=== PATIENT | female | born 1985 | race Caucasian/White ===

== ENCOUNTER 2016-11-30 18:16 | Emergency (ER) | payer OTHER ==
[2016-11-30 18:28] VITALS: BP 114/75; PULSE 69; RESP 18; TEMP 97.9
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
== END 2016-11-30 19:01 | disposition home or self-care (01) ==
LOC: EC 18:16
DX: Z04.1 Encounter for examination and observation following transport accident (principal); V48.5XXA Car driver injured in noncollision transport accident in traffic accident, initial encounter; Y92.410 Unspecified street and highway as the place of occurrence of the external cause
CPT/HCPCS: 99283

== ENCOUNTER 2017-01-03 12:23 | Inpatient (IN) | payer OTHER ==
[2017-01-03] MEDS ORDERED: HYDROmorphone 0.5 MG/0.5 ML SYRINGE IVP STA (13:41)
[2017-01-03] MEDS ORDERED: MAGNESIUM CITRATE 296 ML BOTTLE PO ONE (13:47)
[2017-01-03] MEDS ORDERED: LACTULOSE 20 GM/30 ML CUP PO ONE (13:47)
--- NOTE | 2017-01-03 13:47 | ED ---
General Adult HPI - General Chief complaint: Abdominal Pain Stated complaint: Post Surgical Complications Time Seen by Provider: 01/03/17 13:30 Source: patient, RN notes reviewed, old records reviewed Mode of arrival: wheelchair Limitations: no limitations - History of Present Illness Initial comments: 31-year-old female presents with chief complaint constipation and rectal bleeding. Patient had a hemorrhoidectomy on 12/29. Since that time she has had normal bowel movements. She has had 5 ER visits. Patient also complains of some rectal bleeding, and passing some small clots. She has tried Colace, MiraLAX, magnesium citrate 2. Patient was instructed to not use an enema secondary to her recent surgery. Denies nausea vomiting, does complain of significant pain in her rectum. - Related Data Previous Rx's Medication Instructions Recorded Ondansetron [Zofran ODT] 4 mg PO Q8HR PRN #10 tab 12/25/16 Hydrocodone/Acetaminophen [[place] 1 tab PO Q6HR PRN #10 tab 01/02/17 5-325] Metoclopramide [Reglan] 10 mg PO TID PRN #15 tab 01/02/17 Polyethylene Glycol 3350 [Miralax] 17 gm PO DAILY #255 gm 01/02/17 Allergies Allergy/AdvReac Type Severity Reaction Status Date / Time No Known Allergies Allergy Verified 01/03/17 15:13 Review of Systems ROS Statement: Those systems with pertinent positive or pertinent negative responses have been documented in the HPI. ROS Other: All systems not noted in ROS Statement are negative. Past Medical History Past Medical History: No Reported History Additional Past Medical History / Comment(s): PRE-ECLAMPSIA History of Any Multi-Drug Resistant Organisms: None Reported Past Surgical History: Section Additional Past Surgical History / Comment(s): hemorrhoidectomy and sphinctectomy 2017 Past Psychological History: Anxiety, Depression Smoking Status: Never smoker Past Alcohol Use History: None Reported Past Drug Use History: None Reported General Exam Limitations: no limitations General appearance: alert, in no apparent distress Head exam: Present: atraumatic, normocephalic Eye exam: Present: normal appearance, PERRL ENT exam: Present: normal exam Neck exam: Present: normal inspection. Absent: tenderness Respiratory exam: Present: normal lung sounds bilaterally. Absent: respiratory distress Cardiovascular Exam: Present: regular rate, normal rhythm GI/Abdominal exam: Present: soft. Absent: distended, tenderness Rectal exam: Present: bloody stool, hemorrhoids, tenderness Extremities exam: Present: normal inspection, normal capillary refill. Absent: pedal edema Neurological exam: Present: alert, oriented X3. Absent: motor sensory deficit Psychiatric exam: Present: normal affect, normal mood Skin exam: Present: warm, dry, intact. Absent: cyanosis, diaphoretic Course Vital Signs 01/03/17 12:49 Temperature 98.7 F Pulse Rate 103 H Respiratory 103 H Rate Blood Pressure 111/75 O2 Sat by Pulse 95 Oximetry Medical Decision Making - Medical Decision Making 31-year-old female presents with constipation 1 week, status post hemorrhoidectomy. Patient is also had rectal bleeding and pain. Laboratory studies including CBC, CMP and urinalysis are unremarkable. X-ray does show colonic stool. Case is discussed with Dr. Bolivar, given her multiple ER visits and recent surgery, patient will be admitted for pain control, laxatives, and surgical evaluation. - Lab Data Result diagrams: 01/03/17 14:00 01/03/17 14:00 Lab Results 01/03/17 01/03/17 01/03/17 Range/Units 14:00 14:00 14:00 WBC 7.4 (3.8-10.6) k/uL RBC 5.14 (3.80-5.40) m/uL Hgb 13.8 (11.4-16.0) gm/dL Hct 43.1 (34.0-46.0) % MCV 83.8 (80.0-100.0) fL MCH 26.8 (25.0-35.0) pg MCHC 32.0 (31.0-37.0) g/dL RDW 14.0 (11.5-15.5) % Plt Count 266 (150-450) k/uL Neutrophils % 68 % Lymphocytes % 18 % Monocytes % 8 % Eosinophils % 3 % Basophils % 1 % Neutrophils # 5.0 (1.3-7.7) k/uL Lymphocytes # 1.3 (1.0-4.8) k/uL Monocytes # 0.6 (0-1.0) k/uL Eosinophils # 0.2 (0-0.7) k/uL Basophils # 0.0 (0-0.2) k/uL PT 9.7 (9.0-12.0) sec INR 0.9 (<1.2) APTT 24.2 (22.0-30.0) sec Sodium 139 (137-145) mmol/L Potassium 4.3 (3.5-5.1) mmol/L Chloride 101 (98-107) mmol/L Carbon Dioxide 33 H (22-30) mmol/L Anion Gap 5 mmol/L BUN 12 (7-17) mg/dL Creatinine 0.72 (0.52-1.04) mg/dL Est GFR (MDRD) Af Amer >60 (>60 ml/min/1.73 sqM) Est GFR (MDRD) Non-Af >60 (>60 ml/min/1.73 sqM) Glucose 89 (74-99) mg/dL Calcium 9.2 (8.4-10.2) mg/dL Total Bilirubin 0.3 (0.2-1.3) mg/dL AST 26 (14-36) U/L ALT 48 (9-52) U/L Alkaline Phosphatase 69 (38-126) U/L Total Protein 7.1 (6.3-8.2) g/dL Albumin 4.0 (3.5-5.0) g/dL Urine Color Urine Appearance (Clear) Urine pH (5.0-8.0) Ur Specific Mathews (1.001-1.035) Urine Protein (Negative) Urine Glucose (UA) (Negative) Urine Ketones (Negative) Urine Blood (Negative) Urine Nitrite (Negative) Urine Bilirubin (Negative) Urine Urobilinogen (<2.0) mg/dL Ur Leukocyte Esterase (Negative) Urine RBC (0-5) /hpf Urine WBC (0-5) /hpf Ur Squamous Epith Cells (0-4) /hpf Amorphous Sediment (None) /hpf Hyaline Casts (0-2) /lpf Urine Mucus (None) /hpf Urine HCG, Qual (Not Detectd) Blood Type Blood Type Recheck Antibody Screen Spec Expiration Date 01/03/17 01/03/17 01/03/17 Range/Units 14:00 14:37 14:37 WBC (3.8-10.6) k/uL RBC (3.80-5.40) m/uL Hgb (11.4-16.0) gm/dL Hct (34.0-46.0) % MCV (80.0-100.0) fL MCH (25.0-35.0) pg MCHC (31.0-37.0) g/dL RDW (11.5-15.5) % Plt Count (150-450) k/uL Neutrophils % % Lymphocytes % % Monocytes % % Eosinophils % % Basophils % % Neutrophils # (1.3-7.7) k/uL Lymphocytes # (1.0-4.8) k/uL Monocytes # (0-1.0) k/uL Eosinophils # (0-0.7) k/uL Basophils # (0-0.2) k/uL PT (9.0-12.0) sec INR (<1.2) APTT (22.0-30.0) sec Sodium (137-145) mmol/L Potassium (3.5-5.1) mmol/L Chloride (98-107) mmol/L Carbon Dioxide (22-30) mmol/L Anion Gap mmol/L BUN (7-17) mg/dL Creatinine (0.52-1.04) mg/dL Est GFR (MDRD) Af Amer (>60 ml/min/1.73 sqM) Est GFR (MDRD) Non-Af (>60 ml/min/1.73 sqM) Glucose (74-99) mg/dL Calcium (8.4-10.2) mg/dL Total Bilirubin (0.2-1.3) mg/dL AST (14-36) U/L ALT (9-52) U/L Alkaline Phosphatase (38-126) U/L Total Protein (6.3-8.2) g/dL Albumin (3.5-5.0) g/dL Urine Color Yellow Urine Appearance Cloudy H (Clear) Urine pH 7.5 (5.0-8.0) Ur Specific Mathews 1.016 (1.001-1.035) Urine Protein Trace H (Negative) Urine Glucose (UA) Negative (Negative) Urine Ketones Negative (Negative) Urine Blood Small H (Negative) Urine Nitrite Negative (Negative) Urine Bilirubin Negative (Negative) Urine Urobilinogen <2.0 (<2.0) mg/dL Ur Leukocyte Esterase Trace H (Negative) Urine RBC 3 (0-5) /hpf Urine WBC 3 (0-5) /hpf Ur Squamous Epith Cells 4 (0-4) /hpf Amorphous Sediment Occasional H (None) /hpf Hyaline Casts 5 H (0-2) /lpf Urine Mucus Rare H (None) /hpf Urine HCG, Qual Not Detected (Not Detectd) Blood Type O Positive Blood Type Recheck No Antibody Screen NEGATIVE Spec Expiration Date 01/06/2017 - 2300 Disposition Clinical Impression: Abdominal pain, Constipation, Rectal pain, Hemorrhoids Disposition: ADMITTED IP TO THIS [facility] Condition: Stable Referrals: Shukri Wagner MD [Primary Care Provider] - 1-2 days Decision to Admit Reason: Admit from EC Decision Date: 01/03/17 Decision Time: 15:32
[2017-01-03 14:10] LABS: Basophils % (A) 1 %; CH 27.4; CHCM 32.8; Eosinophils # (A) 0.2 k/uL (0-0.7); Eosinophils % (A) 3 %; HCT 43.1 % (34.0-46.0); HDW 2.73; HGB 13.8 gm/dL (11.4-16.0); Luc # (Auto) 0.24; Luc % (Auto) 3; Lymphocytes # (A) 1.3 k/uL (1.0-4.8); Lymphocytes % (A) 18 %; MCH 26.8 pg (25.0-35.0); MCV 83.8 fL (80.0-100.0); Mean Platelet Volume 6.3; Monocytes # (A) 0.6 k/uL (0-1.0); Monocytes % (A) 8 %; Neutrophils % (A) 68 %; RBC 5.14 m/uL (3.80-5.40); WBC 7.4 k/uL (3.8-10.6); WBC (Perox) 7.21
[2017-01-03] MEDS: SODIUM CHLORIDE 0.9% 1,000 ML IV STA ×2 (14:13→22:57)
[2017-01-03 14:18] LABS: INR 0.9 (<1.2); Partial Thromboplastin Time 24.2 sec (22.0-30.0); Prothrombin Time 9.7 sec (9.0-12.0)
[2017-01-03 14:19] LABS: ALT 48 U/L (9-52); AST 26 U/L (14-36); Alkaline Phosphatase 69 U/L (38-126); Anion Gap 5 mmol/L; Blood Urea Nitrogen 12 mg/dL (7-17); Calcium 9.2 mg/dL (8.4-10.2); Carbon Dioxide 33 mmol/L (22-30); Chloride 101 mmol/L (98-107); Glucose 89 mg/dL (74-99); Non-African American GFR(MDRD) >60 (>60 ml/min/1.73 sqM); Potassium 4.3 mmol/L (3.5-5.1); Sodium 139 mmol/L (137-145); Total Bilirubin 0.3 mg/dL (0.2-1.3); Total Protein 7.1 g/dL (6.3-8.2)
--- NOTE | 2017-01-03 14:51 | XR ---
EXAMINATION TYPE: XR KUB DATE OF EXAM: 01/03/2017 CLINICAL DATA: 31-year-old female with abdominal pain, H COMPARISON: 01/02/2017 FINDINGS: Lung bases are clear. No evidence for free intraperitoneal air. Moderate stool in the rectum. Air-fluid levels are present throughout and appear to be both central a nd peripherally located involving both large and small bowel. IUD is again visualized. Phlebolith right hemipelvis. IMPRESSION: 1. Peripheral and central air-fluid levels suggest fluid in both small and large bowel. Correlate for generalized ileus or enteritis. 2. Given moderate stool in the rectum, consider short interval follow-up to exclude distal colonic ob struction. This is considered less likely.
[2017-01-03 14:58] LABS: Amorphous Sediment,Urine Occasional /hpf; Appearance,Urine Cloudy (Clear); Bilirubin,Urine Negative (Negative); Glucose,Urine (UA) Negative (Negative); Ketones,Urine Negative (Negative); Leukocyte Esterase,Urine Trace (Negative); Mucus,Urine Rare /hpf; Nitrite,Urine Negative (Negative); PH, Urine 7.5 (5.0-8.0); Particle Count 8094; Protein,Urine Trace (Negative); RBC,Urine 3 /hpf (0-5); Specific Gravity,Urine 1.016 (1.001-1.035); Squamous Epithelial Cell,Urine 4 /hpf (0-4); UA Billing (MACRO vs. MICRO) MICRO; Urobilinogen,Urine <2.0 mg/dL (<2.0); WBC,Urine 3 /hpf (0-5)
[2017-01-03] MEDS ORDERED: ONDANSETRON 4 MG/2 ML VIAL IVP PRN (15:32)
[2017-01-03] MEDS ORDERED: DOCUSATE 100 MG CAP PO PRN (15:32)
[2017-01-03] MEDS ORDERED: NALOXONE 0.4 MG/ML 1 ML VIAL IV PRN (15:32)
[2017-01-03] MEDS ORDERED: LACTULOSE 20 GM/30 ML CUP PO PRN (15:32)
[2017-01-03] MEDS ORDERED: HYDROmorphone 0.5 MG/0.5 ML SYRINGE IVP PRN ×2 (15:32→20:20)
[2017-01-03] MEDS ORDERED: KETOROLAC 30 MG/ML 1 ML VIAL IVP STA (20:20)
[2017-01-03] MEDS: HYDROmorphone 1 MG/ML 1 ML SYRINGE IVP PRN ×2 (20:35→22:58)
[2017-01-04] MEDS: HYDROmorphone 1 MG/ML 1 ML SYRINGE IVP PRN ×8 (01:46→17:39)
[2017-01-04] MEDS: SODIUM CHLORIDE 0.9% 1,000 ML IV STA (08:36)
[2017-01-04] MEDS ORDERED: MAG HYDROX/AL HYDROX/SIMETH 30 ML CUP PO PRN (09:51)
[2017-01-04] MEDS ORDERED: PEG 3350-NA SULF,BICARB,CL/KCL 4,000 ML BOTTLE PO ONE (10:00)
[2017-01-04] MEDS: ONDANSETRON 4 MG/2 ML VIAL IVP PRN ×2 (10:10→17:36)
[2017-01-04] MEDS: SODIUM CHLORIDE 0.9% 1,000 ML IV SCH (10:21)
[2017-01-04] MEDS: FAMOTIDINE 20 MG/2 ML VIAL IV SCH ×2 (10:38→19:56)
[2017-01-04] MEDS ORDERED: ACETAMINOPHEN TAB 325 MG TAB PO PRN (10:56)
--- NOTE | 2017-01-04 14:42 | HP ---
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 She has had quite considerable pain prior to her surgery, requiring a few ER visits. In fact, was taking narcotics including [place] prior to surgery. The surgery went real well. She was advised to take a stool softener daily. She had no relief with the [place] at home to the point she used up her prescription fairly quickly and had called for renewal. She has had at least about 4 or 5 ER visits over the last week. States she had not had a bowel movement since the surgery. Was not recommended to take any laxative for the first 3 or 4 days after the surgery for fear of causing bleeding. She declined rectal examination when she was in the emergency room by the ER physician. She presented again to the emergency room last night and because of continued pain, constipation, was admitted for further management. No nausea, vomiting. She has been eating. Has been having some bleeding as expected. She has tried at least 2 doses of citrate of magnesia over the weekend, Colace, MiraLAX, none of which seem to have worked. She does complain quite bitterly about her postoperative course and that something should have be done earlier, but we tried to explain to her that it was not safe for her to take a laxative within a few days after her surgery and certainly one would not expect narcotic usage as much as she has required which unfortunately contributed towards her constipation issues. Does have a history of chronic constipation prior to this. Past history as above. She has had C-sections. History of depression, anxiety. On examination, the patient is well built, well nourished, a little overweight. When first I entered the room, she seemed to be quite relaxed and in no acute distress and did not appear to be in severe pain. However, she got quite anxious subsequently, accusatory and demanded that she be taken to surgery and her constipation problem be taken care of under anesthesia. The vitals of good, temperature is normal. Color is good. No abdominal tenderness or distention. Rectal area looks normal for postoperative course with the usual amount of blood on the pad, no evidence of infection or abscess or any complication. We avoided digital examination because of her tenderness and pain. LABORATORY STUDIES: Reviewed. Hemoglobin is stable at 13.6. Abdominal x-ray shows some stool in the rectum. No obstruction. IMPRESSION: Post hemorrhoidectomy pain, constipation. RECOMMENDATION: Will order GoLYTELY for her. She is initially very reluctant to try this, but continues to insist that we disimpact her under anesthesia. I think that this would be rather dangerous and may precipitate more complications and bleeding. She eventually agrees to try this course and further management will depend on the clinical course. MMODL / IJN: [id number] /
[2017-01-04] MEDS: HYDROmorphone 2 MG/ML 1 ML SYRINGE IVP PRN ×2 (19:57→22:12)
[2017-01-05] MEDS: SODIUM CHLORIDE 0.9% 1,000 ML IV SCH ×4 (00:35→17:31)
[2017-01-05] MEDS: HYDROmorphone 2 MG/ML 1 ML SYRINGE IVP PRN ×11 (00:35→23:01)
[2017-01-05] MEDS: ONDANSETRON 4 MG/2 ML VIAL IVP PRN (00:36)
[2017-01-05 06:17] LABS: Basophils % (A) 0 %; CH 27.2; CHCM 32.3; Eosinophils # (A) 0.2 k/uL (0-0.7); Eosinophils % (A) 2 %; HCT 35.9 % (34.0-46.0); HDW 2.72; HGB 11.4 gm/dL (11.4-16.0); Luc # (Auto) 0.26; Luc % (Auto) 3; Lymphocytes # (A) 1.8 k/uL (1.0-4.8); Lymphocytes % (A) 21 %; MCH 26.7 pg (25.0-35.0); MCHC 31.6 g/dL (31.0-37.0); MCV 84.4 fL (80.0-100.0); Mean Platelet Volume 6.5; Monocytes # (A) 0.8 k/uL (0-1.0); Monocytes % (A) 9 %; Neutrophils # (A) 5.8 k/uL (1.3-7.7); Neutrophils % (A) 66 %; RBC 4.26 m/uL (3.80-5.40); RDW 13.7 % (11.5-15.5); WBC 8.8 k/uL (3.8-10.6)
[2017-01-05] MEDS ORDERED: NA PHOS,M-B/NA PHOS,DI-BA 133 ML ENEMA RECTAL PRN (08:04)
[2017-01-05] MEDS ORDERED: BISACODYL 10 MG SUPP RECTAL PRN (08:06)
[2017-01-05] MEDS: KETOROLAC 30 MG/ML 1 ML VIAL IVP PRN ×3 (08:16→21:10)
[2017-01-05] MEDS: FAMOTIDINE 20 MG/2 ML VIAL IV SCH ×2 (10:04→21:10)
--- NOTE | 2017-01-05 14:25 | P.GSCN ---
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 Corley's report. According to the patient patient has a history of chronic constipation. Patient states she' s had constipation since she's been a child. Patient states she's never had a colonoscopy done. Never has had a workup done to the chronic constipation. Patient states that prior to surgery had been into the emergency room on several occasions with a chief complaint of rectal pain and constipation. states that there've been several visits the emergency room prior to the surgery which was unable to have a bowel movement. According to the patient this admission she has not had a bowel movement for the past several weeks. Patient states she's been having intense sharp pain in her rectal area. Patient states she's tried numerous [id number] products to relieve the constipation there been no effective relief. patient states before she had her hemorrhoidectomy done been into the emergency room on several occasions to be evaluated for the constipation with rectal pain had been taking [place] which did not relieve the pain patient has been given several doses of citrate of magnesia over the weekend with Colace and MiraLAX. Patient states none of this worked. Patient states that she was told by the surgeon he may have to surgically disimpacted the stool from the colon for relief patient states she is anxious to have this done Review of Systems Essentially unremarkable except as mentioned in the present illness Past Medical History Past Medical History: No Reported History Additional Past Medical History / Comment(s): PRE-ECLAMPSIA History of Any Multi-Drug Resistant Organisms: None Reported Past Surgical History: Section Additional Past Surgical History / Comment(s): hemorrhoidectomy and sphinctectomy 2017 Additional Past Anesthesia/Blood Transfusion Reaction / Comm: NEVER HAD BLOOD TRANSFUSION Past Psychological History: Anxiety, Depression Smoking Status: Never smoker Past Alcohol Use History: None Reported Past Drug Use History: None Reported - Past Family History Father History Unknown: Yes Family Medical History: Coronary Artery Disease (CAD), Hypertension Mother History Unknown: Yes Family Medical History: Thyroid Disorder Medications and Allergies Home Medications Medication Instructions Recorded Confirmed Type Ondansetron [Zofran ODT] 4 mg PO Q8HR PRN #10 tab 12/25/16 01/03/17 Rx Hydrocodone/Acetaminophen [[place] 1 tab PO Q6HR PRN #10 tab 01/02/17 01/03/17 Rx 5-325] Metoclopramide [Reglan] 10 mg PO TID PRN #15 tab 01/02/17 01/03/17 Rx Polyethylene Glycol 3350 [Miralax] 17 gm PO DAILY #255 gm 01/02/17 01/03/17 Rx Allergies Allergy/AdvReac Type Severity Reaction Status Date / Time No Known Allergies Allergy Verified 01/03/17 15:13 Surgical - Exam Vital Signs Temp Pulse Resp BP Pulse Ox 98.7 F 103 H 103 H 111/75 95 01/03/17 12:49 01/03/17 12:49 01/03/17 12:49 01/03/17 12:49 01/03/17 12:49 GENERAL APPEARANCE: 31-year-old female patient is alert, oriented, in no acute distress. VITAL SIGNS: Reviewed HEENT: Head is normocephalic and atraumatic. Pupils are equal and reactive. The nares are patent. Oropharynx is clear without lesions. NECK: Supple without lymphadenopathy. Traches midline. HEART: S1, S2. Regular rate and rhythm. No murmur noted LUNGS: No crackles or wheezes are heard. Adequate air movement bilaterally ABDOMEN: Soft, nontender, nondistended with good bowel sounds. No peritoneal signs. No palpable organomegaly or masses. EXTREMITIES: Normal skin color and turgor. No cyanosis, rash, ulceration, clubbing or edema. Radial pedal pulses are 2/4 bilaterally. NEUROLOGICAL: No focal deficits. Strength and sensation are grossly intact. Rectum inspected no active bleeding no evidence of infection no abscess tenderness in the rectal area no digital exam done because of her tenderness and pain Results - Labs 01/05/17 05:51 01/03/17 14:00 Assessment and Plan Assessment: Impression Post hemorrhoidectomy pain with constipation History of chronic constipation Plan Continue with the current recommendations by Dr. Corley defer to No further surgical recommendations agree with current treatment plan per Dr. Corley management Agree with patient needing a bowel stimulant program As an outpatient when appropriate patient would benefit from a colonoscopy to evaluate patient's history of chronic constipation The above impression and plan of care have been discussed and directed by signing physician. Grace Salas nurse practitioner acting as scribe for signing physician.
--- NOTE | 2017-01-05 17:36 | P.PN ---
Progress Note - Text Progress Note Date: 01/05/17 The patient continues to have constipation. Has not had a bowel movement for about 7 days since his surgery to 8 days. Has had the frequent the blood clots although the globin is fairly stable. Was given multiple laxatives over the last 3 or 4 days including several doses of citrate of magnesia lactulose in addition to Colace daily with no were Aquacel. Had the way down off the GoLYTELY yesterday with no significant results other than a small amount of liquid stool. No nausea or vomiting. No significant abdominal distention. Patient was a recommended Dulcolax suppository or a gentle enema tub soaks to see this prophylaxis sphincter muscle but she refused. He eventually took the top silk yesterday but the had minimal results and she declined to do it any further because she was afraid of for developing urinary urinary tract infection. She also declined to take any more laxatives today. She insists on proceeding with the evacuation under anesthesia. I have recommended that if she does not have any bowel action in the next 24 hours that we would have to at least examined and anesthesia seeds is any significant source for bleeding and attempt to evacuate if necessary her rectum. She understands as I've explained to her and the family that may result in the more pain infection stirring up for more information bleeding and complications. She understood and wished to proceed with the examination under anesthesia
[2017-01-06] MEDS: HYDROmorphone 2 MG/ML 1 ML SYRINGE IVP PRN ×6 (01:31→13:43)
[2017-01-06] MEDS: SODIUM CHLORIDE 0.9% 1,000 ML IV SCH ×2 (01:32→17:35)
[2017-01-06] MEDS: KETOROLAC 30 MG/ML 1 ML VIAL IVP PRN ×3 (03:11→20:32)
[2017-01-06] MEDS: FAMOTIDINE 20 MG/2 ML VIAL IV SCH ×2 (09:15→21:05)
[2017-01-06] MEDS: ONDANSETRON 4 MG/2 ML VIAL IVP PRN ×2 (09:15→15:48)
[2017-01-06 11:56] VITALS: BMI 30.4
[2017-01-06] MEDS ORDERED: IV FLUID CONTINUATION 1,000 ML IV ONE (15:31)
[2017-01-06] MEDS ORDERED: MIDAZOLAM 2 MG/2 ML VIAL IVP ONE (15:49)
[2017-01-06] MEDS ORDERED: DEXAMETHASONE SOD PHOS (MDV) 100 MG/10 ML VIAL IVP ONE (15:49)
[2017-01-06] MEDS ORDERED: fentaNYL (PF) 50 MCG/ML 2 ML AMP ONE (15:54)
[2017-01-06] MEDS ORDERED: PROPOFOL 10 MG/ML 20 ML VIAL IV ONE (15:54)
[2017-01-06] MEDS ORDERED: MIDAZOLAM 2 MG/2 ML VIAL ONE (15:54)
--- NOTE | 2017-01-06 16:34 | P.OP ---
Date of Procedure: 01/06/17 Preoperative Diagnosis: Fecal impaction with the hemorrhoidal bleeding from the hemorrhoidectomy site. Postoperative Diagnosis: Same Procedure(s) Performed: Examination under anesthesia with the fecal disimpaction manually and cauterization of the hemorrhoidectomy site. Anesthesia: MAC Surgeon: Jalen Corley Estimated Blood Loss (ml): 2 Pathology: none sent Condition: stable Disposition: PACU Indications for Procedure: The patient is a 31-year-old white female who about 9-10 days ago underwent a hemorrhoidectomy elsewhere as an outpatient. She hadn't had a bowel movement since then. Having a lot of pain. Has not responded to multiple different laxatives including several bottles of citrate of magnesia over the last week as well as the stool softeners gallon of GoLYTELY with no results. She feels a constant pressure in the area. She unfortunately diffuse any local treatment the such as digitalization as an outpatient within the year room for enemas and Dulcolax suppositories. She recommended this be done under anesthesia since she could not tolerate the pain anymore. Has been using the considerable amount of narcotics wet with at least about 5 for emergency room visits after her surgery for pain control. As expected some bleeding with clots slight drop in hemoglobin. Examination under anesthesia with possible disimpaction was recommended and informed consent was obtained procedure is having explained to her including potential complication particular bleeding infection continued symptoms leakage etc. She understood and agree to proceed. Operative Findings: Rectal fecal impaction. Nicely healing hemorrhoidectomy site. No evidence of any complication or infection. Minimal oozing of from the base of the hemorrhoidectomy site. Description of Procedure: Patient was placed in the left lateral position. Adequate sedation was induced. The area was prepped with Betadine and draped. Manual digital examination confirmed a large ball of stool in the rectal ampulla that was manually evacuated. The rectum was completely empty at the end of the procedure and there was no evidence of any impacted stool however. The base of the hemorrhoid site was cauterized with the electrocautery with good hemostasis. The area was thoroughly cleansed and washed again and dressings were applied. All counts were correct. There is less than 1 mL of blood loss.
[2017-01-06] MEDS ORDERED: HYDROmorphone 1 MG/ML 1 ML SYRINGE IVP ONE ×2 (16:46→16:51)
[2017-01-06] MEDS: traMADol 50 MG TAB PO SCH ×2 (18:16→22:47)
[2017-01-06] MEDS: ALPRAZolam 0.5 MG TAB PO PRN (21:05)
[2017-01-06] MEDS: BENZOCAINE/MENTHOL SPRAY 1 GM/SPRAY AEROSOL TOPICAL PRN (21:05)
[2017-01-07] MEDS: KETOROLAC 30 MG/ML 1 ML VIAL IVP PRN ×2 (04:29→12:56)
[2017-01-07] MEDS: HYDROmorphone 1 MG/ML 1 ML SYRINGE IVP PRN ×7 (05:27→22:52)
[2017-01-07 06:41] LABS: Basophils % (A) 0 %; CH 27.2; CHCM 32.4; Eosinophils % (A) 0 %; HCT 31.4 % (34.0-46.0); HDW 2.82; Luc # (Auto) 0.13; Luc % (Auto) 2; Lymphocytes % (A) 14 %; MCH 26.8 pg (25.0-35.0); MCHC 31.9 g/dL (31.0-37.0); MCV 84.2 fL (80.0-100.0); Mean Platelet Volume 7.2; Monocytes # (A) 0.6 k/uL (0-1.0); Monocytes % (A) 8 %; Neutrophils # (A) 5.1 k/uL (1.3-7.7); Neutrophils % (A) 75 %; RBC 3.72 m/uL (3.80-5.40); RDW 13.8 % (11.5-15.5); WBC 6.8 k/uL (3.8-10.6); WBC (Perox) 6.85
--- NOTE | 2017-01-07 08:23 | P.PN ---
Progress Note - Text Progress Note Date: 01/07/17 The patient had the disimpaction of STOOL under anesthesia yesterday. Had a few episodes of some bright red blood per rectum which is not unexpected the due to the trauma of the disimpaction and her recent hemorrhoid surgery. The bleeding seems to have subsided. Her hemoglobin is 10 g percent. Was stable. However highly anxious. The family's informed. On examination vitals are stable. No fever. He rectal visual examination reveals no evidence of any infection or complication. The pad that's the in place is dry and has the been dry for the last hour or so Impression some rectal bleeding post the manual disimpaction under anesthesia. Expected. Commendation continued monitoring today hopefully she can be discharged tomorrow. Continue on a high-fiber diet the. MiraLAX Colace. Monitor her hemoglobin. His sitz baths.
[2017-01-07] MEDS: traMADol 50 MG TAB PO SCH ×5 (08:43→22:47)
[2017-01-07] MEDS: FAMOTIDINE 20 MG/2 ML VIAL IV SCH ×2 (08:43→20:33)
[2017-01-07] MEDS: SODIUM CHLORIDE 0.9% 1,000 ML IV SCH ×2 (18:01→19:45)
[2017-01-07] MEDS: ALPRAZolam 0.5 MG TAB PO PRN (22:46)
[2017-01-08] MEDS: HYDROmorphone 1 MG/ML 1 ML SYRINGE IVP PRN ×4 (02:11→10:15)
[2017-01-08] MEDS: KETOROLAC 30 MG/ML 1 ML VIAL IVP PRN ×2 (04:08→12:12)
[2017-01-08 06:41] LABS: CH 26.8; CHCM 31.7; HCT 29.1 % (34.0-46.0); HDW 2.64; HGB 9.5 gm/dL (11.4-16.0); Hypochromasia Slight; MCH 27.8 pg (25.0-35.0); MCHC 32.7 g/dL (31.0-37.0); MCV 85.1 fL (80.0-100.0); Mean Platelet Volume 7.7; RBC 3.42 m/uL (3.80-5.40); RDW 15.6 % (11.5-15.5); WBC 6.2 k/uL (3.8-10.6)
[2017-01-08 08:44] VITALS: BP 123/75; PULSE 82; RESP 20; TEMP 97.5
[2017-01-08] MEDS ORDERED: FAMOTIDINE 20 MG TAB PO SCH (09:00)
[2017-01-08] MEDS: traMADol 50 MG TAB PO SCH (10:07)
[2017-01-08] MEDS: BENZOCAINE/MENTHOL SPRAY 1 GM/SPRAY AEROSOL TOPICAL PRN (10:08)
--- NOTE | 2017-01-08 11:43 | P.DS ---
Providers Date of admission: 01/06/17 12:43 Expected date of discharge: 01/08/17 Attending physician: Jalen Corley Consults: 01/05/17 09:05 Consult Physician Routine Consulting Provider: Geneva David Consult Reason/Comments: second opinion disimpact bowel Do you want consulting provider notified?: Already Contacted Primary care physician: Shukri Wagner [facility] Course: The patient is a 31-year-old white female who about 9-10 days ago underwent a hemorrhoidectomy elsewhere as an outpatient. She hadn't had a bowel movement since then. Having a lot of pain. Has not responded to multiple different laxatives including several bottles of citrate of magnesia over the last week as well as the stool softeners gallon of GoLYTELY with no results. She feels a constant pressure in the area. She unfortunately refused any local treatment such as digitalization and enemas and Dulcolax suppositories. She recommended this be done under anesthesia since she could not tolerate the pain anymore. Has been using the considerable amount of narcotics with at least about 5 for emergency room visits after her surgery for pain control. As expected some bleeding with clots slight drop in hemoglobin. Examination under anesthesia with possible disimpaction was recommended and informed consent was obtained procedure is having explained to her including potential complication particular bleeding infection continued symptoms leakage etc patient underwent a rectal fecal disimpaction done on the december. Operative findings showed a nicely healing hemorrhoidectomy site. No evidence of any complication no infection. minimal oozing from the base of the hemorrhoidectomy site On January 08 patient was felt to be hemodynamically stable and appropriate proceed with discharge. Reinforced to the patient to not take any more narcotics Impression discharge diagnoses Present on admission constipation opiate-induced leading to fecal impaction under anesthesia fecal disimpaction done manually and cauterization of the hemorrhoidectomy site done on January 06 Fecal impaction with hemorrhoidal bleeding from the hemorrhoidectomy site Rectal fecal impaction History of chronic constipation A recent hemorrhoidectomy 2 week prior with opiate use for pain control Rectal pain present on admission suspect due to constipation opiate-induced The above impression and plan of care have been discussed and directed by signing physician. Grace Salas nurse practitioner acting as scribe for signing physician. Patient Condition at Discharge: Stable Plan - Discharge Summary Discharge Rx Participant: Yes New Discharge Prescriptions: New Ibuprofen [Motrin] 800 mg PO BID #20 tab No Action Ondansetron [Zofran ODT] 4 mg PO Q8HR PRN #10 tab PRN Reason: Nausea Hydrocodone/Acetaminophen [[place] 5-325] 1 tab PO Q6HR PRN #10 tab PRN Reason: Pain Metoclopramide [Reglan] 10 mg PO TID PRN #15 tab PRN Reason: GERD Polyethylene Glycol 3350 [Miralax] 17 gm PO DAILY #255 gm Discharge Medication List Ondansetron [Zofran ODT] 4 mg PO Q8HR PRN #10 tab 12/25/16 [Rx] Hydrocodone/Acetaminophen [[place] 5-325] 1 tab PO Q6HR PRN #10 tab 01/02/17 [Rx] Metoclopramide [Reglan] 10 mg PO TID PRN #15 tab 01/02/17 [Rx] Polyethylene Glycol 3350 [Miralax] 17 gm PO DAILY #255 gm 01/02/17 [Rx] Ibuprofen [Motrin] 800 mg PO BID #20 tab 01/08/17 [Rx] Follow up Appointment(s)/Referral(s): Shukri Wagner MD [Primary Care Provider] - 1-2 days Jalen Corley MD [STAFF PHYSICIAN] - 01/14/17 10:00 am (You have an appointment with Dr Corley on December at 10:00 am.) Patient Instructions/Handouts: Constipation (GEN), High Fiber Diet (GEN) Activity/Diet/Wound Care/Special Instructions: Drink plenty of fluids. Shower daily, may use sitz bath as needed. Avoid constipating foods. Call Dr Corley if you have increase in bleeding, cannot pass stool, or if you have any other questions or concerns. You can get your note for work from Dr Corley's office when you go for your appointment on December, at 10:00 am Discharge Disposition: HOME SELF-CARE
== END 2017-01-08 13:01 | disposition home or self-care (01) | DRG 226 ==
LOC: EC 12:23 → 6PED 15:50 → OBSVTOIN 01-06 12:43
PROVIDERS: ADMIT Surgery; ATTEND Surgery
PROC: 0W3P7ZZ Control Bleeding in Gastrointestinal Tract, Via Natural or Artificial Opening (ICD-10-PCS; 2017-01-06)
PROC: 0DCP7ZZ Extirpation of Matter from Rectum, Via Natural or Artificial Opening (ICD-10-PCS; principal; 2017-01-06 15:54)
DX: K59.03 Drug induced constipation (principal); F32.9 Major depressive disorder, single episode, unspecified; K62.5 Hemorrhage of anus and rectum; E66.3 Overweight; F41.9 Anxiety disorder, unspecified; T40.605A Adverse effect of unspecified narcotics, initial encounter; Z82.49 Family history of ischemic heart disease and other diseases of the circulatory system; Y92.009 Unspecified place in unspecified non-institutional (private) residence as the place of occurrence of the external cause
CPT/HCPCS: 36415; 74000; 80053; 81001; 81025; 85025; 85027; 85610; 85730; 86850; 86900; 86901; 96361; 96374; 99285

== ENCOUNTER 2017-03-11 09:59 | Emergency (ER) | payer OTHER ==
[2017-03-11 10:07] VITALS: BP 135/77; PULSE 98; TEMP 98.2
--- NOTE | 2017-03-11 11:01 | ED ---
Anxiety HPI - General Chief Complaint: Anxiety Stated Complaint: POSS PANIC ATTACK Time Seen by Provider: 03/11/17 10:39 Source: patient, RN notes reviewed Mode of arrival: ambulatory Limitations: no limitations - History of Present Illness Initial Comments: 31-year-old female presents emergency Department chief complaint anxiety, panic attack. Patient states she's been having increased anxiety over the last week. She states that she had a full-blown panic attack. She states her heart was racing, dizziness, nausea, she states she started feeling numbness and tingling all over. She states that he she used to be on BuSpar and Xanax. She states she went off because she was not having too many symptoms. Patient states that since she's been emergency from she has calmed down she states that she has not had a panic attack and several years but she does not remember the symptoms. Patient states that she is symptom-free at this time no medications. Patient denies any suicidal or homicidal ideation. - Related Data Home Medications: Home Medications Medication Instructions Recorded Confirmed Dextroamphetamine/Amphetamine 30 mg PO DAILY 02/03/17 03/11/17 [Adderall Xr] Docusate [Colace] 100 mg PO DAILY PRN 02/03/17 03/11/17 Zolpidem [Ambien] 5 mg PO HS 02/03/17 03/11/17 Previous Rx's Medication Instructions Recorded Ondansetron [Zofran ODT] 4 mg PO Q8HR PRN #10 tab 12/25/16 ALPRAZolam [Xanax] 0.5 mg PO BID PRN #10 tablet 03/11/17 Allergies/Adverse Reactions: Allergies Allergy/AdvReac Type Severity Reaction Status Date / Time No Known Allergies Allergy Verified 03/11/17 10:24 Review of Systems ROS Statement: Those systems with pertinent positive or pertinent negative responses have been documented in the HPI. ROS Other: All systems not noted in ROS Statement are negative. Past Medical History Past Medical History: No Reported History Additional Past Medical History / Comment(s): PRE-ECLAMPSIA, constipation, panick attacks History of Any Multi-Drug Resistant Organisms: None Reported Past Surgical History: Section Additional Past Surgical History / Comment(s): hemorrhoidectomy and sphinctectomy November 2016 Past Anesthesia/Blood Transfusion Reactions: No Reported Reaction Additional Past Anesthesia/Blood Transfusion Reaction / Comment(s): NEVER HAD BLOOD TRANSFUSION Past Psychological History: Anxiety, Depression Smoking Status: Current some day smoker Past Alcohol Use History: Rare Past Drug Use History: None Reported - Past Family History Father History Unknown: Yes Family Medical History: Coronary Artery Disease (CAD), Hypertension Mother History Unknown: Yes Family Medical History: Thyroid Disorder General Exam Limitations: no limitations General appearance: alert, in no apparent distress Head exam: Present: atraumatic, normocephalic, normal inspection Eye exam: Present: normal appearance, PERRL, EOMI. Absent: scleral icterus, conjunctival injection, periorbital swelling ENT exam: Present: normal exam, normal oropharynx, mucous membranes moist, TM's normal bilaterally, normal external ear exam Neck exam: Present: normal inspection, full ROM. Absent: tenderness, meningismus, lymphadenopathy Respiratory exam: Present: normal lung sounds bilaterally. Absent: respiratory distress, wheezes, rales, rhonchi, stridor Cardiovascular Exam: Present: regular rate, normal rhythm, normal heart sounds. Absent: systolic murmur, diastolic murmur, rubs, gallop, clicks Neurological exam: Present: alert, oriented X3, CN II-XII intact Psychiatric exam: Present: anxious Skin exam: Present: warm, dry, intact, normal color. Absent: rash Course Vital Signs 03/11/17 10:04 Temperature 98.2 F Pulse Rate 98 Respiratory 20 Rate Blood Pressure 135/77 O2 Sat by Pulse 100 Oximetry Medical Decision Making - Medical Decision Making 31-year-old female presented emergency department for anxiety, panic attack. Patient's symptoms are resolving. Patient we discharged with prescription for Xanax as she is to take in the past if she has recurrent panic attack. We discussed follow-up with PCP discussed with the medications if symptoms persist. Patient socks suicidal or homicidal. Disposition Clinical Impression: Acute anxiety, Panic attack Disposition: HOME SELF-CARE Condition: Stable Instructions: Generalized Anxiety Disorder (ED) Additional Instructions: Please return to the Emergency Department if symptoms worsen or any other concerns. Prescriptions: ALPRAZolam [Xanax] 0.5 mg PO BID PRN #10 tablet PRN Reason: Anxiety Referrals: Shukri Wagner MD [Primary Care Provider] - 1-2 days Time of Disposition: 11:01
[2017-03-11 11:23] VITALS: RESP 16
== END 2017-03-11 11:23 | disposition home or self-care (01) ==
LOC: EC 09:59
DX: F41.0 Panic disorder [episodic paroxysmal anxiety] (principal); F32.9 Major depressive disorder, single episode, unspecified; F17.200 Nicotine dependence, unspecified, uncomplicated; Z79.899 Other long term (current) drug therapy
CPT/HCPCS: 99283

== ENCOUNTER 2017-08-09 15:31 | Emergency (ER) | payer OTHER ==
[2017-08-09 15:53] VITALS: PULSE 77
--- NOTE | 2017-08-09 16:33 | ED ---
General Adult HPI - General Chief complaint: Psychiatric Symptoms Stated complaint: Anxiety/Depression Time Seen by Provider: 08/09/17 16:08 Source: patient, RN notes reviewed Mode of arrival: ambulatory Limitations: no limitations - History of Present Illness Initial comments: Patient 32-year-old female significant past medical history for depression, presenting to the emergency room today with a chief complaint of increased anxiety and depression. Patient does not that she's been following up with a counselor. She states that over the last several months her symptoms seem to be increasing. She states she does have an appointment with a psychiatrist on August 18. She states she didn't feel like she was compared to make the appointment because the symptoms seem to be increasing. Patient denies any suicidal or homicidal thoughts or plans. Denies any visual or auditory hallucinations. Patient denies any other physical complaint. Patient denies any recent fever, chills, shortness of breath, chest pain, back pain, abdominal pain, nausea or vomiting, numbness or tingling, dysuria or hematuria, constipation or diarrhea, headaches or visual changes, or any other complaints. - Related Data Home Medications Medication Instructions Recorded Confirmed Dextroamphetamine/Amphetamine 30 mg PO DAILY 02/03/17 08/09/17 [Adderall Xr] Zolpidem [Ambien] 5 mg PO HS 02/03/17 08/09/17 Naproxen [Naprosyn] 500 mg PO Q12HR PRN 08/09/17 08/09/17 Previous Rx's Medication Instructions Recorded LORazepam [Ativan] 1 mg PO BID PRN #6 tablet 08/09/17 Allergies Allergy/AdvReac Type Severity Reaction Status Date / Time No Known Allergies Allergy Verified 08/09/17 16:41 Review of Systems ROS Statement: Those systems with pertinent positive or pertinent negative responses have been documented in the HPI. ROS Other: All systems not noted in ROS Statement are negative. Past Medical History Past Medical History: No Reported History Additional Past Medical History / Comment(s): PRE-ECLAMPSIA, constipation, panic attacks depression anxiety History of Any Multi-Drug Resistant Organisms: None Reported Past Surgical History: Section Additional Past Surgical History / Comment(s): hemorrhoidectomy and sphinctectomy November 2016 Past Anesthesia/Blood Transfusion Reactions: No Reported Reaction Additional Past Anesthesia/Blood Transfusion Reaction / Comment(s): NEVER HAD BLOOD TRANSFUSION Past Psychological History: Anxiety, Depression Smoking Status: Never smoker Past Alcohol Use History: Rare Past Drug Use History: None Reported - Past Family History Father History Unknown: Yes Family Medical History: Coronary Artery Disease (CAD), Hypertension Mother History Unknown: Yes Family Medical History: Thyroid Disorder General Exam - General Exam Comments Initial Comments: General: The patient is awake and alert, in no distress, and does not appear acutely ill. Eye: Pupils are equal, round and reactive to light, extra-ocular movements are intact. No nystagmus. There is normal conjunctiva bilaterally. No signs of icterus. Ears, nose, mouth and throat: There are moist mucous membranes and no oral lesions. Neck: The neck is supple, there is no tenderness or JVD. Cardiovascular: There is a regular rate and rhythm. No murmur, rub or gallop is appreciated. Respiratory: Lungs are clear to auscultation, respirations are non-labored, breath sounds are equal. No wheezes, stridor, rales, or rhonchi. Musculoskeletal: Normal ROM, no tenderness. Strength 5/5. Sensation intact. Pulses equal bilaterally 2+. Neurological: A&O x 3. CN II-XII intact, There are no obvious motor or sensory deficits. Coordination appears grossly intact. Speech is normal. Skin: Skin is warm and dry and no rashes or lesions are noted. Psychiatric: Cooperative, appropriate mood & affect, normal judgment. Limitations: no limitations Course Vital Signs 08/09/17 15:50 Temperature 98.1 F Pulse Rate 77 Respiratory 20 Rate Blood Pressure 143/89 O2 Sat by Pulse 98 Oximetry Medical Decision Making - Medical Decision Making Patient has been seen here in emergency room by mental health. Patient is not suicidal. Has no thoughts of hurting herself or others. Psych services recommends the patient may follow up outpatient. They recommend a short course of Ativan. Patient will be given 6 tabs of Ativan to use for any anxiety and advised follow-up the family doctor prior to seeing a psychiatrist for refill if needed. - Lab Data Lab Results 08/09/17 08/09/17 Range/Units 16:23 16:23 Urine HCG, Qual Not Detected (Not Detectd) Urine Opiates Screen Not Detected (NotDetected) Ur Oxycodone Screen Not Detected (NotDetected) Urine Methadone Screen Not Detected (NotDetected) Ur Propoxyphene Screen Not Detected (NotDetected) Ur Barbiturates Screen Not Detected (NotDetected) U Tricyclic Antidepress Not Detected (NotDetected) Ur Phencyclidine Scrn Not Detected (NotDetected) Ur Amphetamines Screen Not Detected (NotDetected) U Methamphetamines Scrn Not Detected (NotDetected) U Benzodiazepines Scrn Not Detected (NotDetected) Urine Cocaine Screen Not Detected (NotDetected) U Marijuana (THC) Screen Not Detected (NotDetected) Disposition Clinical Impression: Acute anxiety Disposition: HOME SELF-CARE Condition: Good Instructions: Generalized Anxiety Disorder (ED) Additional Instructions: Please use medication as discussed. Please follow-up with community mental health as discussed and family physician. Please return to emergency room if the symptoms increase or worsen or for any other concerns. Prescriptions: LORazepam [Ativan] 1 mg PO BID PRN #6 tablet PRN Reason: Anxiety Is patient prescribed a controlled substance at d/c from ED?: No Referrals: Shukri Wagner MD [Primary Care Provider] - 1-2 days Time of Disposition: 18:20
[2017-08-09 16:51] LABS: Amphetamine Screen,Urine Not Detected (NotDetected); Barbiturate Screen,Urine Not Detected (NotDetected); Benzodiazepines Screen,Urine Not Detected (NotDetected); Cocaine Screen,Urine Not Detected (NotDetected); Methadone Screen, Urine Not Detected (NotDetected); Opiate Screen,Urine Not Detected (NotDetected); Oxycodone Screen, Urine Not Detected (NotDetected); Phencyclidine Screen,Urine Not Detected (NotDetected); Tricyclic Antidepressant,Urine Not Detected (NotDetected); Urn Cannabinoid Scrn Not Detected (NotDetected)
[2017-08-09 18:50] VITALS: BP 103/64; RESP 18; TEMP 97.8
== END 2017-08-09 18:49 | disposition home or self-care (01) ==
LOC: EC 15:31
DX: F41.9 Anxiety disorder, unspecified (principal); Z79.899 Other long term (current) drug therapy
CPT/HCPCS: 80306; 81025; 82075; 99284

== ENCOUNTER 2017-08-14 18:19 | Emergency (ER) | payer OTHER ==
[2017-08-14 18:31] VITALS: RESP 18
--- NOTE | 2017-08-14 19:58 | ED ---
Anxiety HPI - General Chief Complaint: Anxiety Stated Complaint: POSS MED REACTION TO ANXIETY MED Time Seen by Provider: 08/14/17 18:33 Source: patient Mode of arrival: ambulatory - History of Present Illness Initial Comments: 32-year-old female presenting for evaluation of panic attacks and anxiety. She states that this is been ongoing for some years however recently was becoming worse. She had been discontinued from her medications because she was started with a new primary care provider and was not restarted on those medications. They've been working to set up counseling for her with her psychiatrist and counselor and this appointment is for Wednesday. Last Wednesday she was seen at this facility because she was having breakthrough panic attacks and was started on Ativan with improvement in the panic attacks however now that she is feeling depressed and believes this to be a side effect of her medications. During extended conversation was determined that they wished to be started on Xanax as she appears to been on that without any side effects and it had helped her tremendously. She states that the Ativan was something new and she had been offered both Ativan and Xanax and was started on it because it had a longer duration of time. She denies suicidal or homicidal ideations and does not have any plans of hurting herself. - Related Data Home Medications: Home Medications Medication Instructions Recorded Confirmed Naproxen [Naprosyn] 500 mg PO Q12HR PRN 08/09/17 08/14/17 Previous Rx's Medication Instructions Recorded LORazepam [Ativan] 1 mg PO BID PRN #6 tablet 08/09/17 ALPRAZolam [Xanax] 0.25 mg PO Q8HR PRN 3 Days #9 tab 08/14/17 Allergies/Adverse Reactions: Allergies Allergy/AdvReac Type Severity Reaction Status Date / Time No Known Allergies Allergy Verified 08/14/17 18:26 Review of Systems ROS Statement: Those systems with pertinent positive or pertinent negative responses have been documented in the HPI. ROS Other: All systems not noted in ROS Statement are negative. Constitutional: Denies: fever, chills Eyes: Denies: eye pain, vision change ENT: Denies: ear pain, throat pain Respiratory: Denies: cough, dyspnea Cardiovascular: Denies: chest pain, palpitations Endocrine: Denies: fatigue, polydipsia, polyuria Gastrointestinal: Denies: abdominal pain, nausea, vomiting Genitourinary: Denies: urgency, dysuria Musculoskeletal: Denies: back pain, arthralgia Skin: Denies: rash, lesions Neurological: Denies: headache, weakness Psychiatric: Reports: anxiety, depression. Denies: auditory hallucinations, visual hallucinations, homicidal thoughts, suicidal thoughts Hematological/Lymphatic: Denies: easy bleeding, easy bruising Past Medical History Past Medical History: No Reported History Additional Past Medical History / Comment(s): PRE-ECLAMPSIA, constipation, panic attacks depression anxiety History of Any Multi-Drug Resistant Organisms: None Reported Past Surgical History: Section Additional Past Surgical History / Comment(s): hemorrhoidectomy and sphinctectomy November 2016 Past Anesthesia/Blood Transfusion Reactions: No Reported Reaction Additional Past Anesthesia/Blood Transfusion Reaction / Comment(s): NEVER HAD BLOOD TRANSFUSION Past Psychological History: Anxiety, Depression Smoking Status: Never smoker Past Alcohol Use History: Rare Past Drug Use History: None Reported - Past Family History Father History Unknown: Yes Family Medical History: Coronary Artery Disease (CAD), Hypertension Mother History Unknown: Yes Family Medical History: Thyroid Disorder General Exam Limitations: no limitations General appearance: alert, in no apparent distress Head exam: Present: atraumatic, normocephalic, normal inspection Eye exam: Present: normal appearance, PERRL, EOMI. Absent: scleral icterus, conjunctival injection, periorbital swelling ENT exam: Present: normal exam, mucous membranes moist Neck exam: Present: normal inspection. Absent: tenderness, meningismus, lymphadenopathy Respiratory exam: Present: normal lung sounds bilaterally. Absent: respiratory distress, wheezes, rales, rhonchi, stridor Cardiovascular Exam: Present: regular rate, normal rhythm, normal heart sounds. Absent: systolic murmur, diastolic murmur, rubs, gallop, clicks GI/Abdominal exam: Present: soft, normal bowel sounds. Absent: distended, tenderness, guarding, rebound, rigid Rectal exam: Present: deferred Extremities exam: Present: normal inspection, full ROM, normal capillary refill. Absent: tenderness, pedal edema, joint swelling, calf tenderness Back exam: Present: normal inspection Neurological exam: Present: alert, oriented X3, CN II-XII intact Psychiatric exam: Present: depressed, anxious. Absent: homicidal ideation, suicidal ideation Skin exam: Present: warm, dry, intact, normal color. Absent: rash Course Vital Signs 08/14/17 08/14/17 18:26 20:11 Temperature 98.1 F 98.6 F Pulse Rate 96 92 Respiratory 18 18 Rate Blood Pressure 121/85 128/82 O2 Sat by Pulse 98 100 Oximetry Medical Decision Making - Medical Decision Making 32-year-old female presenting for evaluation of anxiety and panic attacks. She was seen at this facility on Wednesday and started on Ativan which she states helped with her anxiety however she started have feelings of depression which she attributes to the medication. On physical examination she appears to be mildly distressed however the remainder of physical exam revealed no significant abnormalities. Discussed her presentation with mental health and agreed that a repeat evaluation was not necessary at this time. Through further discussion it was determined that she would be discontinued from Ativan and started on Xanax which her father and her agreed had previously been working to control both her anxiety and her depression. She will be only given 3 days as this will get her through to her appointment on Wednesday with her counselor and psychiatrist. A score was obtained which was 160. She was advised to follow-up with her PCP and with her appointment on Wednesday and given return instructions. The patient and her father acknowledged an understanding of all information provided and agreed with this plan of care. Disposition Clinical Impression: Panic attack Disposition: HOME SELF-CARE Condition: Stable Instructions: Generalized Anxiety Disorder (ED) Additional Instructions: Please use medication as discussed. Please follow up with family doctor if symptoms have not improved over the next two days. Please return to the emergency room if your symptoms increase or worsen or for any other concerns. Prescriptions: ALPRAZolam [Xanax] 0.25 mg PO Q8HR PRN 3 Days #9 tab PRN Reason: anx Is patient prescribed a controlled substance at d/c from ED?: Yes When asked, does pt state using other controlled substances?: Yes If prescribed controlled substance>3 days was MAPS reviewed?: Yes Referrals: Sammy Bryan MD [Primary Care Provider] - 1-2 days Time of Disposition: 19:56
[2017-08-14 20:12] VITALS: BP 128/82; PULSE 92; TEMP 98.6
== END 2017-08-14 20:12 | disposition home or self-care (01) ==
LOC: EC 18:19
DX: F41.0 Panic disorder [episodic paroxysmal anxiety] (principal); F32.9 Major depressive disorder, single episode, unspecified
CPT/HCPCS: 99283

== ENCOUNTER 2017-10-09 05:44 | Emergency (ER) | payer OTHER ==
[2017-10-09 05:51] VITALS: BP 135/90; PULSE 80; RESP 20; TEMP 97.6
[2017-10-09] MEDS ORDERED: BUPIVACAINE (PF) 0.5% 30 ML VIAL SQ STA (06:21)
[2017-10-09] MEDS ORDERED: KETOROLAC 30 MG/ML 1 ML VIAL IM STA (06:21)
[2017-10-09] MEDS ORDERED: LIDOCAINE 1% INJ 10MG/ML (20 ML MDV) SQ ONE (06:21)
--- NOTE | 2017-10-09 06:21 | ED ---
General Adult HPI - General Chief complaint: Dental/Oral Stated complaint: Dental pain Time Seen by Provider: 10/09/17 06:09 Source: patient Mode of arrival: ambulatory Limitations: no limitations - History of Present Illness Initial comments: Previously healthy 32-year-old female presenting with left-sided dental pain. Patient was seen and evaluated earlier in the week, was prescribed clindamycin which she has been taking. Patient has been alternating Tylenol and Motrin which she's been taking 400 mg every 8 hours for the past 2 days but has had progressively worsening pain in her left upper molar. Patient reports she was unable to sleep throughout the night tonight so she came to the ER for pain management. Patient denies any fevers, chills, nausea, vomiting, chest pain or shortness of breath. She denies any change in bowel or bladder habits. Patient denies any previous history of cardiac disease. She denies any difficulty swallowing or speaking. She denies any facial swelling. Patient has multiple dental caries and due to problems with dental insurance has been unable to follow up, however with this acute problem she has been able to contact the dental insurance carrier and establish dental insurance and her mother is agreed to help her pay for dental work so she will be able to see a dentist in the next week. - Related Data Home Medications Medication Instructions Recorded Confirmed ALPRAZolam [Xanax] 0.5 mg PO Q8HR PRN 10/09/17 Atomoxetine HCl [Strattera] 100 mg PO QAM 10/09/17 10/09/17 busPIRone HCL [Buspar] 15 mg PO BID 10/09/17 10/09/17 Allergies Allergy/AdvReac Type Severity Reaction Status Date / Time No Known Allergies Allergy Verified 08/14/17 18:26 Review of Systems ROS Statement: Those systems with pertinent positive or pertinent negative responses have been documented in the HPI. ROS Other: All systems not noted in ROS Statement are negative. Past Medical History Past Medical History: No Reported History Additional Past Medical History / Comment(s): PRE-ECLAMPSIA, constipation, panic attacks depression anxiety History of Any Multi-Drug Resistant Organisms: None Reported Past Surgical History: Section Additional Past Surgical History / Comment(s): hemorrhoidectomy and sphinctectomy November 2016 Past Anesthesia/Blood Transfusion Reactions: No Reported Reaction Additional Past Anesthesia/Blood Transfusion Reaction / Comment(s): NEVER HAD BLOOD TRANSFUSION Past Psychological History: ADD/ADHD, Anxiety, Depression Smoking Status: Former smoker Past Alcohol Use History: Rare Past Drug Use History: None Reported - Past Family History Father History Unknown: Yes Family Medical History: Coronary Artery Disease (CAD), Hypertension Mother History Unknown: Yes Family Medical History: Thyroid Disorder General Exam Limitations: no limitations General appearance: alert, other (Appears uncomfortable) Head exam: Present: atraumatic, normocephalic Eye exam: Present: normal appearance, PERRL ENT exam: Present: other (Multiple dental caries, fracture of tooth #15 with no surrounding erythema, no obvious infection or abscess) Neck exam: Present: full ROM. Absent: tenderness, meningismus, lymphadenopathy Respiratory exam: Present: normal lung sounds bilaterally. Absent: respiratory distress Cardiovascular Exam: Present: regular rate, normal rhythm, normal heart sounds. Absent: systolic murmur, diastolic murmur GI/Abdominal exam: Present: soft. Absent: distended Rectal exam: Present: deferred Extremities exam: Present: full ROM Neurological exam: Present: alert, oriented X3 Psychiatric exam: Present: normal affect, normal mood Skin exam: Present: warm, dry Course Vital Signs 10/09/17 05:47 Temperature 97.6 F Pulse Rate 80 Respiratory 20 Rate Blood Pressure 135/90 O2 Sat by Pulse 100 Oximetry Procedures - Nerve Block Consent Obtained: verbal consent Time Out Performed: Yes Local Anesthetic Used: Lidocaine 1% Side: left Intraoral Nerve Block: inferior alveolar Procedure Successful: Yes Complications: none Patient Tolerated Procedure: well Medical Decision Making - Medical Decision Making She was seen and evaluated, patient with multiple dental caries and fracture of the tooth #15 with persistent pain for 2 days. Pain improved with IM Toradol at urgent care, patient is been taking by mouth clindamycin. Patient has no signs of infection. I discussed with the patient the risks and benefits of a nerve block - I advised the patient that a nerve block will relieve the pain temporarily, however there is risk of nerve damage resulting in permanent paresthesias or paralysis. Patient is aware of this. She has had nerve blocks with dentist before. Patient would like to pursue a nerve block. Nerve block was performed with a mix of Marcaine and lidocaine, patient was reevaluated approximately 15 minutes after the nerve block and reported significant improvement in her discomfort. Disposition Clinical Impression: Dental caries, Fracture of tooth Disposition: HOME SELF-CARE Instructions: Dental Caries (ED), Toothache (ED) Is patient prescribed a controlled substance at d/c from ED?: No Referrals: Sammy Bryan MD [Primary Care Provider] - 1-2 days Time of Disposition: 06:56
== END 2017-10-09 07:00 | disposition home or self-care (01) ==
LOC: EC 05:44
DX: S02.5XXA Fracture of tooth (traumatic), initial encounter for closed fracture (principal); K02.9 Dental caries, unspecified; F32.9 Major depressive disorder, single episode, unspecified; F41.9 Anxiety disorder, unspecified; F90.9 Attention-deficit hyperactivity disorder, unspecified type; Z87.891 Personal history of nicotine dependence; Z79.899 Other long term (current) drug therapy
CPT/HCPCS: 99282; 64400; 96372; J2001; J1885

== ENCOUNTER → 2018-01-31 | Outpatient (CLI) | payer OTHER ==
--- NOTE | 2018-01-31 15:25 | US ---
EXAMINATION TYPE: US transvaginal DATE OF EXAM: 01/31/2018 COMPARISON: NONE CLINICAL HISTORY: N92.0 Excessive and frequent menstruation. TECHNIQUE: Transvaginal (TV). Date of LMP: bleeding x 2 months EXAM MEASUREMENTS: Uterus: 8.8 x 5.3 x 6.1 cm Endometrial Stripe: 1.0 cm Right Ovary: 3.6 x 2.4 x 2.5 cm Left Ovary: 3.6 x 2.0 x 3.1 cm 1. Uterus: Retroverted 2. Endometrium: IUD appears within endometrium 3. Right Ovary: wnl 4. Left Ovary: Numerous peripherally oriented follicles are seen within the left ovary. 5. Bilateral Adnexa: wnl 6. Posterior cul-de-sac: no free fluid IMPRESSION: 1. Centrally located intrauterine device, properly placed. Endometrial thickness is within normal soto its. 2. Multiple peripherally oriented left ovarian follicles that can be seen in a cystic ovarian syndrom e. Correlate with laboratory values and clinical exam.
== END ==
LOC: RADUSWWP 14:10
PROVIDERS: ATTEND Internal Medicine
DX: E28.2 Polycystic ovarian syndrome (principal); Z30.431 Encounter for routine checking of intrauterine contraceptive device
CPT/HCPCS: 76830

== ENCOUNTER 2018-02-28 17:43 | Emergency (ER) | payer OTHER ==
[2018-02-28 17:58] VITALS: BP 131/84; PULSE 110; RESP 18; TEMP 98.2
[2018-02-28] MEDS ORDERED: BUPIVACAIN-EPI 0.5%-1:200,000 30 ML VIAL SQ STA (19:29)
[2018-02-28] MEDS ORDERED: ACET/COD 300 MG/30 MG STARTER PACK 6 TAB BTL PO STA (19:47)
--- NOTE | 2018-02-28 19:47 | ED ---
ENT HPI - General Chief complaint: Dental/Oral Stated complaint: tooth infection Time Seen by Provider: 02/28/18 19:21 Source: patient, RN notes reviewed Mode of arrival: ambulatory Limitations: no limitations - History of Present Illness Initial comments: 32-year-old female to emergency department for dental pain. Patient states she has poor dentition. Patient states over the last 4 days she's had pain in the left lower and left upper. She reports no fever no chills no trismus. Patient states that her dentist told her that she needs multiple root canals. Patient states she's been taken Tylenol Motrin no relief. - Related Data Home Medications Medication Instructions Recorded Confirmed ALPRAZolam [Xanax] 0.5 mg PO Q8HR PRN 10/09/17 Atomoxetine HCl [Strattera] 100 mg PO QAM 10/09/17 10/09/17 busPIRone HCL [Buspar] 15 mg PO BID 10/09/17 10/09/17 Previous Rx's Medication Instructions Recorded Fluconazole [Diflucan] 150 mg PO ONCE #2 tab 02/28/18 Ibuprofen [Motrin] 600 mg PO Q8HR PRN #30 tab 02/28/18 Ondansetron Odt [Zofran Odt] 4 mg PO Q8HR PRN #10 tab 02/28/18 Penicillin V Potassium [Pen Vee K] 500 mg PO QID #40 tablet 02/28/18 Allergies Allergy/AdvReac Type Severity Reaction Status Date / Time No Known Allergies Allergy Verified 02/28/18 17:58 Review of Systems ROS Statement: Those systems with pertinent positive or pertinent negative responses have been documented in the HPI. ROS Other: All systems not noted in ROS Statement are negative. Past Medical History Past Medical History: No Reported History Additional Past Medical History / Comment(s): PRE-ECLAMPSIA, constipation, panic attacks depression anxiety History of Any Multi-Drug Resistant Organisms: None Reported Past Surgical History: Section Additional Past Surgical History / Comment(s): hemorrhoidectomy and sphinctectomy November 2016 Past Anesthesia/Blood Transfusion Reactions: No Reported Reaction Additional Past Anesthesia/Blood Transfusion Reaction / Comment(s): NEVER HAD BLOOD TRANSFUSION Past Psychological History: ADD/ADHD, Anxiety, Depression Smoking Status: Current some day smoker Past Alcohol Use History: Rare Past Drug Use History: None Reported - Past Family History Father History Unknown: Yes Family Medical History: Coronary Artery Disease (CAD), Hypertension Mother History Unknown: Yes Family Medical History: Thyroid Disorder General Exam Limitations: no limitations General appearance: alert, in no apparent distress Head exam: Present: atraumatic, normocephalic, normal inspection ENT exam: Present: mucous membranes moist, TM's normal bilaterally, normal external ear exam. Absent: normal oropharynx (Multiple dental caries, no abscess, full range of motion of mandible.) Neck exam: Present: normal inspection, full ROM. Absent: tenderness, meningismus, lymphadenopathy Respiratory exam: Present: normal lung sounds bilaterally. Absent: respiratory distress, wheezes, rales, rhonchi, stridor Cardiovascular Exam: Present: regular rate, normal rhythm, normal heart sounds. Absent: systolic murmur, diastolic murmur, rubs, gallop, clicks Course Vital Signs 02/28/18 17:56 Temperature 98.2 F Pulse Rate 110 H Respiratory 18 Rate Blood Pressure 131/84 O2 Sat by Pulse 98 Oximetry Procedures - Nerve Block Consent Obtained: verbal consent Time Out Performed: Yes Local Anesthetic Used: MARCAINE 0.5% with EPI Amount of anesthesia used: 2 Side: left Intraoral Nerve Block: inferior alveolar Procedure Successful: Yes Complications: none Patient Tolerated Procedure: well, no complications Medical Decision Making - Medical Decision Making 32-year-old female presented for dental pain. Dental block was performed. Patient will be discharged on antibiotics and pain medications. She'll follow- up with dentist. Return parameters were discussed. Disposition Clinical Impression: Pain, dental Disposition: HOME SELF-CARE Condition: Stable Instructions: Toothache (ED) Additional Instructions: Please return to the Emergency Department if symptoms worsen or any other concerns. Prescriptions: Fluconazole [Diflucan] 150 mg PO ONCE #2 tab Ibuprofen [Motrin] 600 mg PO Q8HR PRN #30 tab PRN Reason: Pain Ondansetron Odt [Zofran Odt] 4 mg PO Q8HR PRN #10 tab PRN Reason: Nausea Penicillin V Potassium [Pen Vee K] 500 mg PO QID #40 tablet Is patient prescribed a controlled substance at d/c from ED?: No Referrals: Sammy Bryan MD [Primary Care Provider] - 1-2 days Time of Disposition: 19:47
== END 2018-02-28 20:05 | disposition home or self-care (01) ==
LOC: EC 17:43
DX: K08.89 Other specified disorders of teeth and supporting structures (principal); F41.0 Panic disorder [episodic paroxysmal anxiety]; F32.9 Major depressive disorder, single episode, unspecified; F90.9 Attention-deficit hyperactivity disorder, unspecified type; F17.200 Nicotine dependence, unspecified, uncomplicated; Z79.899 Other long term (current) drug therapy
CPT/HCPCS: 64400; 99282

== ENCOUNTER 2018-07-26 16:01 | Emergency (ER) | payer OTHER ==
[2018-07-26 16:32] VITALS: BP 129/91; PULSE 96; RESP 18; TEMP 97.5
[2018-07-26 17:39] LABS: Appearance,Urine Cloudy (Clear); Bilirubin,Urine Negative (Negative); Blood,Urine Negative (Negative); Color,Urine Light Yellow; Glucose,Urine (UA) Negative (Negative); Ketones,Urine Negative (Negative); Leukocyte Esterase,Urine Negative (Negative); Nitrite,Urine Negative (Negative); Protein,Urine Negative (Negative); Specific Gravity,Urine 1.019 (1.001-1.035); Urobilinogen,Urine <2.0 mg/dL (<2.0)
--- NOTE | 2018-07-26 17:46 | ED ---
General Adult HPI - General Chief complaint: Back Pain/Injury Stated complaint: Lower back pain Time Seen by Provider: 07/26/18 16:31 Source: patient Mode of arrival: ambulatory Limitations: no limitations - History of Present Illness Initial comments: 33-year-old female presenting for left lower back pain. Patient's history of kidney stones. Patient states the past 23 days she has had a pain that is crampy coming going in the left lower back. Patient states that she is trying to get she denies any abdominal pain. Patient states she has had on-and-off nausea. Patient has a fever chills night sweats urgency frequency dysuria she denies any chest pain terms of breath or any other associated symptoms. Patient denies any injury or trauma to the back. She denies any midline tenderness. She denies any right-sided low back pain. Remaining review of system negative. Patient states this does feel similar to when she had a kidney stone the past. - Related Data Home Medications Medication Instructions Recorded Confirmed ALPRAZolam [Xanax] 0.5 mg PO Q8HR PRN 10/09/17 Atomoxetine HCl [Strattera] 100 mg PO QAM 10/09/17 10/09/17 busPIRone HCL [Buspar] 15 mg PO BID 10/09/17 10/09/17 Previous Rx's Medication Instructions Recorded Fluconazole [Diflucan] 150 mg PO ONCE #2 tab 02/28/18 Ibuprofen [Motrin] 600 mg PO Q8HR PRN #30 tab 02/28/18 Ondansetron Odt [Zofran Odt] 4 mg PO Q8HR PRN #10 tab 02/28/18 Penicillin V Potassium [Pen Vee K] 500 mg PO QID #40 tablet 02/28/18 Allergies Allergy/AdvReac Type Severity Reaction Status Date / Time No Known Allergies Allergy Verified 07/26/18 16:32 Review of Systems ROS Statement: Those systems with pertinent positive or pertinent negative responses have been documented in the HPI. ROS Other: All systems not noted in ROS Statement are negative. Past Medical History Past Medical History: No Reported History Additional Past Medical History / Comment(s): PRE-ECLAMPSIA, constipation, panic attacks depression anxiety History of Any Multi-Drug Resistant Organisms: None Reported Past Surgical History: Section Additional Past Surgical History / Comment(s): hemorrhoidectomy and sphinctectomy November 2016 Past Anesthesia/Blood Transfusion Reactions: No Reported Reaction Additional Past Anesthesia/Blood Transfusion Reaction / Comment(s): NEVER HAD BLOOD TRANSFUSION Past Psychological History: ADD/ADHD, Anxiety, Depression Smoking Status: Current some day smoker Past Alcohol Use History: Rare Past Drug Use History: None Reported - Past Family History Father History Unknown: Yes Family Medical History: Coronary Artery Disease (CAD), Hypertension Mother History Unknown: Yes Family Medical History: Thyroid Disorder General Exam - General Exam Comments Initial Comments: General: The patient is awake and alert, in no distress, and does not appear acutely ill. Eye: Pupils are equal, round and reactive to light, extra-ocular movements are intact. No nystagmus. There is normal conjunctiva bilaterally. No signs of icterus. Ears, nose, mouth and throat: There are moist mucous membranes and no oral lesions. Neck: The neck is supple, there is no tenderness or JVD. Cardiovascular: There is a regular rate and rhythm. No murmur, rub or gallop is appreciated. Respiratory: Lungs are clear to auscultation, respirations are non-labored, breath sounds are equal. No wheezes, stridor, rales, or rhonchi. Gastrointestinal: Soft, non-distended, non-tender abdomen without masses or organomegaly noted. There is no rebound or guarding present. No CVA tenderness. Bowel sounds are unremarkable Musculoskeletal: No midline tenderness to palpation of the cervical thoracic or lumbar spine. Normal ROM, no tenderness. Strength 5/5. Sensation intact. Pulses equal bilaterally 2+. Neurological: A&O x 3. CN II-XII intact, There are no obvious motor or sensory deficits. Coordination appears grossly intact. Speech is normal. Skin: Skin is warm and dry and no rashes or lesions are noted. Psychiatric: Cooperative, appropriate mood & affect, normal judgment. Limitations: no limitations Course Vital Signs 07/26/18 16:29 Temperature 97.5 F L Pulse Rate 96 Respiratory 18 Rate Blood Pressure 129/91 O2 Sat by Pulse 97 Oximetry Medical Decision Making - Medical Decision Making 33-year-old female with history of kidney stones presented for left lower back pain. Patient states it does feel similar to when she is case of the past she states she did not think of this prior to arrival. Patient denies any urinary symptoms or constitutional symptoms such as fever or chills or night sweats. UA unremarkable HCG (-). I recommended further evaluation for possible kidney stone. Pt states she does not want any further testing. She states she thinks it will just pass and doesn't want to be in the ER any longer. Pt attempting to leave. At this time feel patient is stable there is no signs of infection on urinalysis. Afebrile appearing well that patient is stable for discharge with outpatient primary care f/u. I discussed this case with Dr. Best h - Lab Data Lab Results 07/26/18 07/26/18 Range/Units 16:35 16:35 Urine Color Light Yellow Urine Appearance Cloudy H (Clear) Urine pH 7.0 (5.0-8.0) Ur Specific [place] 1.019 (1.001-1.035) Urine Protein Negative (Negative) Urine Glucose (UA) Negative (Negative) Urine Ketones Negative (Negative) Urine Blood Negative (Negative) Urine Nitrite Negative (Negative) Urine Bilirubin Negative (Negative) Urine Urobilinogen <2.0 (<2.0) mg/dL Ur Leukocyte Esterase Negative (Negative) Urine HCG, Qual Not Detected (Not Detectd) Disposition Clinical Impression: Left-sided back pain Disposition: HOME SELF-CARE Condition: Good Instructions (If sedation given, give patient instructions): Kidney Stones (ED) Additional Instructions: Please use medication as discussed. Please follow-up with family doctor in the next 2 days, if symptoms worsen or change please return to the ER as discussed. Please return to emergency room if the symptoms increase or worsen or for any other concerns. Is patient prescribed a controlled substance at d/c from ED?: No Referrals: Sammy Bryan MD [Primary Care Provider] - 1-2 days Time of Disposition: 17:46
== END 2018-07-26 17:54 | disposition home or self-care (01) ==
LOC: EC 16:01
DX: M54.5 Low back pain (principal); R11.0 Nausea; Z32.02 Encounter for pregnancy test, result negative; F32.9 Major depressive disorder, single episode, unspecified; F41.9 Anxiety disorder, unspecified; F90.9 Attention-deficit hyperactivity disorder, unspecified type; F17.200 Nicotine dependence, unspecified, uncomplicated; Z79.899 Other long term (current) drug therapy; Z87.442 Personal history of urinary calculi
CPT/HCPCS: 81001; 81025; 99283

== ENCOUNTER → 2018-07-27 | Outpatient (CLI) | payer OTHER | END | disposition home or self-care (01) | LOC: LABWHC1 10:05 | PROVIDERS: ATTEND Nurse Practitioner Adult Health | DX: O02.81 Inappropriate change in quantitative human chorionic gonadotropin (hCG) in early pregnancy (principal); Z3A.00 Weeks of gestation of pregnancy not specified | CPT/HCPCS: 36415; 84702 ==

== ENCOUNTER → 2019-01-20 | Outpatient (CLI) | payer OTHER ==
--- NOTE | 2019-01-23 08:21 | USB ---
Reason for exam: clinical finding. Physical Findings: Nurse Summary: patient states she felt a lump in the left breast, states it got bigger then went away (nurse ts). US Breast LT Left complete breast ultrasound includes all four quadrants, the retroareolar region and axilla. Finding demonstrates a 2.0 x 1.8 x 1.2cm solid, hypoechoic lesion at 1 o'clock and a 0.7 x 0.6 x 0.7cm solid, hypoechoic lesion at 9 o'clock. Biopsy x 2. These results were verbally communicated with the patient and result sheet given to the patient on 01/20/19. ASSESSMENT: Suspicious, BI-RAD 4 RECOMMENDATION: Ultrasound core biopsy of the left breast. (x 2) Called Dr. Bryan's office with mammographic findings and has scheduled an appointment for the patient for 02/01/19 at 4:[address] David. Biopsy scheduled for 02/06/19 at 2:00. PRELIMINARY REPORT CALLED AND FAXED TO DR. DAVID ON 01/23/19.
== END | disposition home or self-care (01) ==
LOC: RADUSWWP 14:44
PROVIDERS: ATTEND Internal Medicine
DX: N63.20 Unspecified lump in the left breast, unspecified quadrant (principal)

== ENCOUNTER → 2019-02-01 | Outpatient (CLI) | payer OTHER ==
[2019-02-01 16:44] VITALS: BP 141/97; PULSE 115; RESP 18; TEMP 98.5
--- NOTE | 2019-02-01 17:39 | P.GSHP ---
History of Present Illness H&P Date: 02/01/19 Chief Complaint: abnormal ultrasound of the left breast Kennedi is a 33 year old white female who states that approximately a month and a half ago felt some nodularity in the inferior aspect of her left breast. The nodularity was of concern and she was scheduled for an ultrasound. However by the time the ultrasound was performed and no longer feel the nodularity in her left breast. The ultrasound however revealed a 2 x 1.8 cm solid lesion at the 1 o'clock position and a 0.7 x 0.7 cm solid lesion at the 9 o'clock position and ultrasound core biopsy of both of these lesions were recommended. Both of these lesions aren't separate sites from where the patient initially felt nodularity. Caffeine: One cup of coffee per day, smoke: 4 cigarettes/month, chocolate: weekly The patient does not complain of any nodules in either bresat at this time. No nipple discharge or skin changes of concern. Family History: adopted, knows maternal biological grandmother stomach or cervical cancer Hormonal History: menarche: 15 , first born at 20, breast feed: none periods: irregular until D&C and taking BCP hormones: BCP: 6 months, no other hormones Medical History: impaction in the past had to have surgical disimpaction Surgical History: C section twice three prolapsed hemrhoids Sphincterotomy disimpaction in the OR Social History: smoke: 4/month alcohol: occasional drugs: none - Constitutional Constitutional: Reports chills - EENT Eyes: denies blurred vision, denies pain Ears: deny: decreased hearing, tinnitus Ears, nose, mouth and throat: Reports sore throat, Denies headache - Breasts Breasts: bilateral: as per HPI - Cardiovascular Cardiovascular: Denies chest pain, Denies shortness of breath - Respiratory Comment: smoker Respiratory: Denies cough, Denies 7 - Gastrointestinal Gastrointestinal: Reports constipation, Reports nausea - Genitourinary (Female) Genitourinary: Denies dysuria, Denies hematuria - Menstruation Comment: on BCP not have periods now - Musculoskeletal Musculoskeletal: Denies myalgias - Integumentary Integumentary: Denies pruritus, Denies rash - Neurological Neurological: Denies numbness, Denies weakness - Psychiatric Psychiatric: Reports anxiety, Denies depression - Endocrine Endocrine: Reports fatigue, Reports weight change - Hematologic/Lymphatic Comment: none - Allergic/Immunologic Allergic/Immunologic: Reports as per HPI Past Medical History Past Medical History: No Reported History Additional Past Medical History / Comment(s): PRE-ECLAMPSIA, constipation, panic attacks, depression, anxiety, anemia History of Any Multi-Drug Resistant Organisms: None Reported Past Surgical History: Section Additional Past Surgical History / Comment(s): hemorrhoidectomy, sphinctectomy and bowel disimpaction November 2016, Section x2, D&C Past Anesthesia/Blood Transfusion Reactions: Postoperative Nausea & Vomiting (PONV) Additional Past Anesthesia/Blood Transfusion Reaction / Comment(s): NEVER HAD BLOOD TRANSFUSION Past Psychological History: ADD/ADHD, Anxiety, Depression Smoking Status: Light tobacco smoker Past Alcohol Use History: None Reported Past Drug Use History: None Reported - Past Family History Father History Unknown: Yes Family Medical History: Coronary Artery Disease (CAD), Hypertension Mother History Unknown: Yes Family Medical History: Thyroid Disorder Medications and Allergies Home Medications Medication Instructions Recorded Confirmed Type busPIRone HCL [Buspar] 30 mg PO BID 10/09/17 02/01/19 History Dextroamphetamine/Amphetamine 30 mg PO QAM 01/24/19 02/01/19 History [Adderall Xr] Dextroamphetamine/Amphetamine 20 mg PO AC-LUNCH 01/24/19 02/01/19 History [Adderall] Melatonin 3 mg PO HS 01/24/19 02/01/19 History QUEtiapine [SEROquel] 50 mg PO HS 01/24/19 02/01/19 History clonazePAM [KlonoPIN] 1 mg PO BID 01/24/19 02/01/19 History Psyllium Husk (with Sugar) 0 gm PO DAILY 02/01/19 02/01/19 History [Metamucil Powder] Allergies Allergy/AdvReac Type Severity Reaction Status Date / Time No Known Allergies Allergy Verified 02/01/19 16:29 Surgical - Exam Vital Signs Temp Pulse Resp BP Pulse Ox 98.5 F 115 H 18 141/97 100 02/01/19 16:35 02/01/19 16:35 02/01/19 16:35 02/01/19 16:35 02/01/19 16:35 BMI 35 - General no distress, obese - Eyes normal ocular movement - ENT normal pinna, normal nares, no hearing loss, no congestion - Neck no masses, trachea midline, no lymphadectomy - Respiratory normal expansion, normal respiratory effort, clear to percussion, clear to auscultation - Cardiovascular Rhythm: regular Heart Sounds: normal: S1, S2 - Abdomen no guarding or rebound, no organomegaly Abdomen: soft, bowel sounds - Integumentary tattoo - Neurologic no disoriented, no combative - Musculoskeletal normal gait, normal posture - Psychiatric oriented to time, oriented to person, oriented to place, speech is normal, memory intact Breast examination: Bra 42 D ptosi grade 1/2 bilateral Right breast: Right breast is smaller than the left breast, multiple positional exam no dominant masses or nodules of concern, fibrocystic changes Right axilla: No adenopathy of concern Left breast: Multiple positional exam no dominant masses or nodules of concern, fibrocystic changes, due to her attention paid to the 6 o'clock position no lesions of concern noted in the left breast Left axilla: No adenopathy of concern Bilateral nipple piercings no evidence of any infection Results ultrasound results reviewed Assessment and Plan Assessment: Impression: 1. Fibrocystic breast changes 2. cystic lesion 6 o'clock position left breast which appears to have resolved 3. Abnormal ultrasound left breast 9 and 1 O Clock for biopsy 4. Family history of cancer 5. patient needs ultrasound of the right breast Plan: 1. ultrasound of the right breast 2. ultrasound core biopsy of the left breast, possible right breast biopsy I have had a long discussion with the patient regarding fibrocystic breast disease, and the causes. I have also discussed the need for an ultrasound core biopsy and the risk and the benefits of this. The patient understands and wishes to proceed. She does however wish to have an ultrasound of the right breast prior to her biopsy in case there is anything of concern there which would also require biopsy. We have discussed that her control pills, caffeine intake and chocolate ingestion may increase fibrocystic changes. We've also discussed that these cysts often come and go, the nodule she felt several months ago in the left breast at the 6 o'clock position was most likely a cyst. It is not palpable today she does not feel it any longer and nothing showed of concern on the ultrasound. CC: Dr. Bryan encounter: 30 minutes, > 50% of time spent in planning and counselling Time with Patient: Greater than 30
== END ==
LOC: WWCWWP 16:24
PROVIDERS: ATTEND Surgery
DX: Z53.9 Procedure and treatment not carried out, unspecified reason (principal)

== ENCOUNTER → 2019-02-02 | Outpatient (CLI) | payer OTHER ==
--- NOTE | 2019-02-02 14:35 | USB ---
Reason for exam: clinical finding. Physical Findings: Breast exam performed by Dr. David. US Breast RT Right complete breast ultrasound includes all four quadrants, the retroareolar region and axilla. Finding demonstrates a 21 x 10 x 19mm oval, solid, hypoechoic lesion at 9 o'clock solid, biopsy recommended, possibly fibroadenoma, a 7 x 5 x 7mm oval, solid, hypoechoic lesion at 10 o'clock and a 8 x 3 x 8mm oval, solid, hypoechoic lesion at 11 o'clock. These results were verbally communicated with the patient and result sheet given to the patient on 02/02/19. ASSESSMENT: Suspicious, BI-RAD 4 RECOMMENDATION: Ultrasound core biopsy of the right breast. Called Dr. Bryan's office with mammographic findings and has scheduled an appointment for the patient for 02/16/19 at 3:[address] David. Biopsy scheduled for 02/06/19 at 2 o'clock. PRELIMINARY REPORT CALLED AND FAXED TO DR. DAVID ON 02/02/19.
== END | disposition home or self-care (01) ==
LOC: RADUSWWP 12:28
PROVIDERS: ATTEND Nurse Practitioner Adult Health
DX: N64.4 Mastodynia (principal)

== ENCOUNTER → 2019-02-06 | Day surgery (SDC) | payer OTHER ==
[2019-02-06 13:29] VITALS: RESP 16
[2019-02-06 15:11] VITALS: BP 120/80; PULSE 69; TEMP 98.1
--- NOTE | 2019-02-06 15:25 | USB ---
EXAMINATION TYPE: US biopsy breast VAD RT, US biopsy breast add'l VAD LT, US biopsy breast VAD LT DATE OF EXAM: 02/06/2019 CLINICAL HISTORY: R92.8 Abnormal Imaging. TECHNIQUE: Ultrasound guided core biopsy of bilateral breasts. COMPARISON: Right breast ultrasound dated 02/02/2019 and left breast ultrasound dated 01/20/2019 FINDINGS: The procedure of ultrasound guided core biopsy was explained to the patient. Benefits, alternatives, and risks were discussed. An informed consent was then obtained. Preprocedural timeout was performed. Site A (left breast 1:00): The patient was placed in supine positioning for imaging and for the procedure. The overlying skin was prepped and draped in usual sterile fashion. 10 cc of 1% lidocaine was used as anesthetic into the skin and subcutaneous tissue up to the 2.0 cm mass at the 1:00 position in the left breast. Under ultrasound guidance, a 12-gauge vacuum assisted biopsy gun device was used to obtain 5 core samples. Following this, a biopsy clip ribbon-shaped biopsy marker was left in the mass. Site B (left breast 9:00): The patient was placed in supine positioning for imaging and for the procedure. The overlying skin was prepped and draped in usual sterile fashion. 10 cc of 1% lidocaine was used as anesthetic into the skin and subcutaneous tissue up to the 0.7 cm mass at the 9:00 position in the left breast. Under ultrasound guidance, a 12-gauge vacuum assisted biopsy gun device was used to obtain 3 core samples. Following this, a wing shaped biopsy marker was left in the mass. Site A (right breast 9:00): The patient was placed in supine positioning for imaging and for the procedure. The overlying skin was prepped and draped in usual sterile fashion. 10 cc of 1% lidocaine was used as anesthetic into the skin and subcutaneous tissue up to the 2.1 cm mass at the 9:00 position in the right breast. Under ultrasound guidance, a 12-gauge vacuum assisted biopsy gun device was used to obtain 5 core samples. Following this, a coil-shaped biopsy marker was left in the mass. The patient tolerated the procedure well without any immediate complication. The patient was kept in the radiology department for short stay after the procedure and then discharged home in stable condition. IMPRESSION: Successful, uncomplicated 3 site ultrasound guided core biopsy of bilateral breast masses (suspected fibroadenomas), full pathology results to follow. There are 2 additional right-sided hypoechoic lesions at 10:00 and 11:00 for which additional recommendation will be made on radiologic/pathologic correlation. Pathology Results: Benign A. LEFT BREAST, 1:00, ULTRASOUND GUIDED CORE BIOPSY: Fibroadenoma. B. LEFT BREAST, 9:00, ULTRASOUND GUIDED CORE BIOPSY: Fibroadenoma. C. RIGHT BREAST, 9:00, ULTRASOUND GUIDED CORE BIOPSY: Fibroadenoma. Recommendation Follow up ultrasound of both breasts in 6 months. CATRACHITOD
== END ==
LOC: RADUSWWP 12:42
PROVIDERS: ATTEND Surgery
DX: D24.2 Benign neoplasm of left breast (principal); D24.1 Benign neoplasm of right breast
CPT/HCPCS: 19083; 19084 ×2; 88305; A4648; J2001

== ENCOUNTER 2019-03-13 08:41 | Emergency (ER) | payer OTHER ==
[2019-03-13] MEDS ORDERED: KETOROLAC 30 MG/ML 1 ML VIAL IVP STA (09:30)
[2019-03-13] MEDS ORDERED: SODIUM CHLORIDE 0.9% 1,000 ML IV STA (09:31)
--- NOTE | 2019-03-13 09:38 | ED ---
General Adult HPI - General Chief complaint: Recheck/Abnormal Lab/Rx Stated complaint: fatigue/headache Time Seen by Provider: 03/13/19 09:09 Source: patient, RN notes reviewed Mode of arrival: ambulatory Limitations: no limitations - History of Present Illness Initial comments: Patient presents to the emergency department for a chief complaint of neck pain. Patient states she has had neck pain for about 2 weeks. Patient states it is all around her neck and is not confined to one area. Patient states movement makes this pain worse. Patient states she has also had an associated headache since that time. Patient initially had a sore throat but that has improved. Patient also has had congestion. Patient did have a fever reported on March 03 but has not had one since that time. Patient had 3-4 days of a Z-Parish and was also on steroids. She denies any other associated symptoms. Denies any difficulty swallowing. Patient has no other complaints at this time including shortness of breath, chest pain, abdominal pain, nausea or vomiting, or visual changes. - Related Data Home Medications Medication Instructions Recorded Confirmed busPIRone HCL [Buspar] 30 mg PO BID 10/09/17 02/06/19 Dextroamphetamine/Amphetamine 30 mg PO QAM 01/24/19 02/06/19 [Adderall Xr] Dextroamphetamine/Amphetamine 20 mg PO AC-LUNCH 01/24/19 02/06/19 [Adderall] Melatonin 3 mg PO HS 01/24/19 02/06/19 QUEtiapine [SEROquel] 50 mg PO HS 01/24/19 02/06/19 clonazePAM [KlonoPIN] 1 mg PO BID 01/24/19 02/06/19 Psyllium Husk (with Sugar) 0 gm PO DAILY 02/01/19 02/06/19 [Metamucil Powder] Docusate [Colace] 100 mg PO DAILY 02/06/19 02/06/19 Previous Rx's Medication Instructions Recorded Ketorolac [Toradol] 10 mg PO TID PRN #10 tab 03/13/19 Allergies Allergy/AdvReac Type Severity Reaction Status Date / Time No Known Allergies Allergy Verified 03/13/19 08:44 Review of Systems ROS Statement: Those systems with pertinent positive or pertinent negative responses have been documented in the HPI. ROS Other: All systems not noted in ROS Statement are negative. Past Medical History Past Medical History: No Reported History Additional Past Medical History / Comment(s): PRE-ECLAMPSIA, constipation, panic attacks, depression, anxiety, anemia History of Any Multi-Drug Resistant Organisms: None Reported Past Surgical History: Section Additional Past Surgical History / Comment(s): hemorrhoidectomy, sphinctectomy and bowel disimpaction November 2016, Section x2, D&C Past Anesthesia/Blood Transfusion Reactions: Postoperative Nausea & Vomiting (PONV) Additional Past Anesthesia/Blood Transfusion Reaction / Comment(s): NEVER HAD BLOOD TRANSFUSION Past Psychological History: ADD/ADHD, Anxiety, Depression Smoking Status: Former smoker Past Alcohol Use History: None Reported Past Drug Use History: None Reported - Past Family History Father History Unknown: Yes Family Medical History: Coronary Artery Disease (CAD), Hypertension Mother History Unknown: Yes Family Medical History: Thyroid Disorder General Exam Limitations: no limitations General appearance: alert, in no apparent distress Head exam: Present: atraumatic, normocephalic, normal inspection Eye exam: Present: normal appearance, PERRL, EOMI. Absent: scleral icterus, conjunctival injection, periorbital swelling ENT exam: Present: normal exam, normal oropharynx, mucous membranes moist, TM's normal bilaterally, normal external ear exam Neck exam: Present: normal inspection, full ROM. Absent: tenderness, meningismus (neg kernig, brudzinsky), lymphadenopathy Respiratory exam: Present: normal lung sounds bilaterally. Absent: respiratory distress, wheezes, rales, rhonchi, stridor Cardiovascular Exam: Present: regular rate, normal rhythm, normal heart sounds. Absent: systolic murmur, diastolic murmur, rubs, gallop, clicks GI/Abdominal exam: Present: soft, normal bowel sounds. Absent: distended, tenderness, guarding, rebound, rigid Neurological exam: Present: alert Psychiatric exam: Present: normal affect, normal mood Course Vital Signs 03/13/19 03/13/19 03/13/19 08:45 08:53 09:53 Temperature 97.3 F L Pulse Rate 96 89 92 Respiratory 18 18 18 Rate Blood Pressure 123/84 120/82 127/85 O2 Sat by Pulse 100 100 100 Oximetry Medical Decision Making - Medical Decision Making Patient has full range motion of the neck. There is no stiffness or meningismus. Oropharynx is unremarkable. No focal neurologic deficits. CBC unremarkable. Mild reactive leukocytosis. CMP and remarkable. CT brain showed an unremarkable study. CT soft tissue neck also noted no significant abnormality. There are no suspicious lymph nodes. No suspicious focal fluid collection or fat stranding. Patient was given Toradol and states this is the m ost relief she has had in 2 weeks. Patient is feeling much better at this time. Given symptom duration of 2 weeks without fevers or consistent physical exam findings I do not suspect meningismus. Patient will follow up with primary care tomorrow. States that she was going to this in the first place however they were not in the office until tomorrow. She will return here if she has any worsening symptoms. She'll be given Toradol for home. - Lab Data Result diagrams: 03/13/19 10:13 03/13/19 10:13 Lab Results 03/13/19 03/13/19 Range/Units 10:13 10:13 WBC 12.2 H (3.8-10.6) k/uL RBC 5.19 (3.80-5.40) m/uL Hgb 13.2 (11.4-16.0) gm/dL Hct 40.3 (34.0-46.0) % MCV 77.7 L (80.0-100.0) fL MCH 25.5 (25.0-35.0) pg MCHC 32.8 (31.0-37.0) g/dL RDW 14.6 (11.5-15.5) % Plt Count 421 (150-450) k/uL Neutrophils % 51 % Lymphocytes % 39 % Monocytes % 6 % Eosinophils % 2 % Basophils % 1 % Neutrophils # 6.2 (1.3-7.7) k/uL Lymphocytes # 4.7 (1.0-4.8) k/uL Monocytes # 0.8 (0-1.0) k/uL Eosinophils # 0.2 (0-0.7) k/uL Basophils # 0.1 (0-0.2) k/uL Hypochromasia Slight Sodium 138 (137-145) mmol/L Potassium 4.4 (3.5-5.1) mmol/L Chloride 101 (98-107) mmol/L Carbon Dioxide 29 (22-30) mmol/L Anion Gap 8 mmol/L BUN 17 (7-17) mg/dL Creatinine 0.76 (0.52-1.04) mg/dL Est GFR (CKD-EPI)AfAm >90 (>60 ml/min/1.73 sqM) Est GFR (CKD-EPI)NonAf >90 (>60 ml/min/1.73 sqM) Glucose 79 (74-99) mg/dL Calcium 9.2 (8.4-10.2) mg/dL Total Bilirubin 0.4 (0.2-1.3) mg/dL AST 19 (14-36) U/L ALT 21 (4-34) U/L Alkaline Phosphatase 66 (38-126) U/L Total Protein 7.6 (6.3-8.2) g/dL Albumin 4.3 (3.5-5.0) g/dL HCG, Qual Not Detected Disposition Clinical Impression: Headache Disposition: HOME SELF-CARE Condition: Good Instructions (If sedation given, give patient instructions): Acute Headache (ED) Additional Instructions: Please take Toradol as directed. Please follow-up with your primary care provider tomorrow. Please return to the emergency department if you have any worsening symptoms. Prescriptions: Ketorolac [Toradol] 10 mg PO TID PRN #10 tab PRN Reason: Pain Is patient prescribed a controlled substance at d/c from ED?: No Referrals: Sammy Bryan MD [Primary Care Provider] - 1-2 days Time of Disposition: 12:16
[2019-03-13] MEDS ORDERED: ONDANSETRON 4 MG/2 ML VIAL IVP STA (09:58)
[2019-03-13 10:44] LABS: HCG,Qualitative Serum Not Detected
[2019-03-13 10:48] LABS: Basophils # (A) 0.1 k/uL (0-0.2); Basophils % (A) 1 %; Eosinophils # (A) 0.2 k/uL (0-0.7); Eosinophils % (A) 2 %; HCT 40.3 % (34.0-46.0); HGB 13.2 gm/dL (11.4-16.0); Hypochromasia Slight; Lymphocytes # (A) 4.7 k/uL (1.0-4.8); Lymphocytes % (A) 39 %; MCH 25.5 pg (25.0-35.0); MCHC 32.8 g/dL (31.0-37.0); MCV 77.7 fL (80.0-100.0); Mean Platelet Volume 6.7; Monocytes # (A) 0.8 k/uL (0-1.0); Monocytes % (A) 6 %; Neutrophils # (A) 6.2 k/uL (1.3-7.7); Neutrophils % (A) 51 %; Platelet Count 421 k/uL (150-450); RBC 5.19 m/uL (3.80-5.40); RDW 14.6 % (11.5-15.5); WBC 12.2 k/uL (3.8-10.6)
[2019-03-13 10:52] LABS: ALT 21 U/L (4-34); AST 19 U/L (14-36); African American GFR (CKD) >90 (>60 ml/min/1.73 sqM); Albumin 4.3 g/dL (3.5-5.0); Alkaline Phosphatase 66 U/L (38-126); Anion Gap 8 mmol/L; Blood Urea Nitrogen 17 mg/dL (7-17); Calcium 9.2 mg/dL (8.4-10.2); Carbon Dioxide 29 mmol/L (22-30); Chloride 101 mmol/L (98-107); Glucose 79 mg/dL (74-99); Non-African American GFR(CKD) >90 (>60 ml/min/1.73 sqM); Potassium 4.4 mmol/L (3.5-5.1); Sodium 138 mmol/L (137-145); Total Bilirubin 0.4 mg/dL (0.2-1.3); Total Protein 7.6 g/dL (6.3-8.2)
--- NOTE | 2019-03-13 11:48 | CT ---
EXAMINATION TYPE: CT brain wo con DATE OF EXAM: 03/13/2019 COMPARISON: None. HISTORY: Headache CT DLP: 1089.8 mGycm. Automated Exposure Control for Dose Reduction was Utilized. TECHNIQUE: CT scan of the head is performed without contrast. FINDINGS: There is no acute intracranial hemorrhage, mass effect, or midline shift identified. The ventricles and sulci are within normal limits in size. Alvarado-white matter differentiation is maintai dianne. The globes are intact and the visualized sinuses are clear. IMPRESSION: Unremarkable study.
--- NOTE | 2019-03-13 11:54 | CT ---
EXAMINATION TYPE: CT soft tissue neck w con DATE OF EXAM: 03/13/2019 HISTORY: neck pain and swelling with headache. COMPARISON: NONE CT DLP: 369.5 mGycm. Automated Exposure Control for Dose Reduction was Utilized. TECHNIQUE: CT scan of the neck is performed with IV Contrast, patient injected with 100 mL of Isovue 300, axial images are obtained, coronal and sagittal reformatted images are reviewed. FINDINGS: Airway: No gross abnormality seen. Parotid/submandibular glands: No gross abnormality seen. Carotid/Vascular Structures: Dominant left vertebral artery incidentally noted. Vertebral arteries ar e both patent to basilar junction. Osseous Structures: No significant abnormalities seen. Other: Nasal septum slightly deviated to the left of midline. Few scattered subcentimeter lymph nodes throughout the neck bilaterally. No suspicious greater than 1 cm neck adenopathy. No suspicious foca l fluid collection or focal area of fat stranding. IMPRESSION: No significant abnormality is seen to account for patient's symptoms of pain and swellin g.
[2019-03-13 12:38] VITALS: BP 129/87; PULSE 103; RESP 20; TEMP 98
== END 2019-03-13 12:38 | disposition home or self-care (01) ==
LOC: EC 08:41
DX: R51 Headache (principal); D72.829 Elevated white blood cell count, unspecified; M54.2 Cervicalgia; R09.89 Other specified symptoms and signs involving the circulatory and respiratory systems; J02.9 Acute pharyngitis, unspecified; K59.00 Constipation, unspecified; F32.9 Major depressive disorder, single episode, unspecified; F41.9 Anxiety disorder, unspecified; F90.9 Attention-deficit hyperactivity disorder, unspecified type; Z87.891 Personal history of nicotine dependence; Z79.899 Other long term (current) drug therapy
CPT/HCPCS: 36415; 80053; 85025; 84703; 70491; 70450; 99284; 96374; 96375; 96361; J2405; J1885; Q9967